=== PATIENT | male | born 1945 | race Caucasian/White ===

== ENCOUNTER → 2016-12-28 | Outpatient (CLI) | payer BC ==
[~2016-12-28] MED LIST: ACT30 PO; ASPI81TA28 PO; ATOR-22 PO; GLIP5TAB11 PO; OLME40TA30 PO; OMEG10007 PO
--- NOTE | 2016-12-28 12:19 | DIAGNOSTIC IMAGING REPORT ---
CT SCAN OF THE ABDOMEN AND PELVIS WITHOUT CONTRAST CLINICAL HISTORY: N20.0 Kidney csefaxM40.9 Flank pain COMPARISON STUDY: KUB dated 10/25/2015 TECHNIQUE: CT scan of the abdomen and pelvis was performed from the lung bases to the proximal femurs. Images are reviewed in the axial, sagittal, and coronal planes. IV contrast was not administered for this examination. A dose lowering technique was utilized adhering to the principles of ALARA. CT DOSE: 1247.11 mGy.cm FINDINGS: Lower chest: There are calcified mediastinal and hilar lymph nodes. There is subpleural interstitial thickening. Liver: The unenhanced liver is normal in size, contour, and attenuation. There is no intrahepatic biliary ductal dilatation. Gallbladder: Cholelithiasis Spleen: There is scattered splenic granulomas. Pancreas: Unremarkable. Adrenal glands: Unremarkable. Kidneys: There are excess of 10 calculi in each kidney. The largest is located within the lower pole of the right kidney measuring 4 mm. No ureteral calculi are visualized. Bowel: There are no transition zones indicate bowel obstruction. There is no acute diverticulitis. By history the appendix is surgically absent. Peritoneum: There is no intraperitoneal free air or abdominal ascites. There is a fat-containing left inguinal hernia. Vasculature: The abdominal aorta is normal in course and caliber. Adenopathy: None. Pelvic viscera: The prostate is mildly enlarged. Skeletal structures: No destructive osseous lesions are seen. IMPRESSION: 1. Bilateral nephrolithiasis 2. No ureteral calculi identified 3. No evidence of bowel obstruction. No evidence of free air 4. Fat-containing left inguinal hernia Electronically signed by: Adrien Akhtar M.D. 12/28/2016 12:18 PM Dictated Date/Time: 12/28/2016 12:12 PM
== END | disposition home or self-care (01) ==
LOC: C.CTS 11:46
PROVIDERS: ATTEND Urology
DX: N20.0 Calculus of kidney (principal); K40.90 Unilateral inguinal hernia, without obstruction or gangrene, not specified as recurrent

== ENCOUNTER 2023-12-13 17:19 | Inpatient (IN) ==
[2023-12-13 17:50] LABS: Base Excess VBG 0.6 mEq/L; HCO3 VBG 27 mmol/L; Oxygen Saturation VBG < 60.0 %; PCO2 VBG 52 mmHg (38-50); PO2 VBG < 20 mmHg; pH VBG 7.33 (7.36-7.41)
[2023-12-13 17:58] LABS: iSTAT Creatinine 1.9 mg/dl (0.6-1.3); iSTAT Hemoglobin 13.9 g/dl (14.0-18.0); iSTAT Ionized Calcium 1.19 mmol/l (1.12-1.32)
--- NOTE | 2023-12-13 18:11 | XRay Report ---
XR chest 1V portable CLINICAL HISTORY: Sepsis TECHNIQUE: Single frontal radiograph of the chest was obtained. Comparison: Comparison is made to chest radiograph 12/08/2023 FINDINGS: No lines and tubes are seen. Calcified aortic knob is seen. Airspace opacities in the right greater t hernandez left lower lung. Right lower lung pleural effusions are seen. IMPRESSION: Right lower lung pleural effusion. Right greater than left airspace opacities, new from prior. This m ay represent atelectasis, pneumonia, and/or aspiration. ACT 112: Negative or not required by law. Electronically signed by: Didier Zavala M.D. 12/13/2023 6:09 PM
[2023-12-13 18:14] LABS: Basophils # (auto) 0.03 K/uL (0.00-0.20); Basophils % (auto) 0.2 %; Eosinophils # (auto) 0.15 K/uL (0.00-0.50); Eosinophils % (auto) 1.1 %; Hematocrit (blood only) 39.5 % (42.0-52.0); Immature Granulocytes # (auto) 0.08 K/uL (0.01-0.20); Immature Granulocytes % (auto) 0.6 %; Lymphocytes # (auto) 1.07 K/uL (1.20-3.40); Lymphocytes % (auto) 7.5 %; Mean Corpuscular Hemoglobin 31.3 pg (25.0-34.0); Mean Corpuscular Hgb Conc 32.9 g/dL (32.0-36.0); Mean Platelet Volume 10.2 fL (9.4-12.4); Monocytes # (auto) 1.55 K/uL (0.11-0.59); Monocytes % (auto) 10.9 %; Neutrophils # (auto) 11.39 K/uL (1.40-6.50); Neutrophils % (auto) 79.7 %; Platelet Count 354 K/uL (130-400); RDW Coefficient of Variation 12.7 % (11.5-14.5); RDW Standard Deviation 44.2 fL (36.4-46.3); Red Blood Count 4.16 M/uL (4.70-6.10); White Blood Count 14.27 K/ul (4.8-10.8)
[2023-12-13 18:15] LABS: Albumin Level 3.5 gm/dl (3.4-5.0); BUN Creatinine Ratio 23.7 (10-20); Bilirubin Direct 0.2 mg/dl (0-0.2); Bilirubin,Total 0.4 mg/dl (0.2-1.0); Calcium 9.4 mg/dl (8.6-10.3); Magnesium 2.1 mg/dl (1.7-2.4); Total Protein 7.6 gm/dl (6.0-8.3)
[2023-12-13 18:21] LABS: Troponin I High Sensitivity 20.2 pg/ml (0-20)
[2023-12-13 18:41] LABS: Partial Thromboplastin Time 28 Seconds (21-31); Prothrombin Time 11.2 Seconds (9.0-12.0)
[2023-12-13 19:01] LABS: Adenovirus PCR Not Detected (NotDetected); Bordetella parapertussis PCR Not Detected (NotDetected); Bordetella pertussis PCR Not Detected (NotDetected); Chlamydia pneumoniae PCR Not Detected (NotDetected); Coronavirus 229E PCR Not Detected (NotDetected); Coronavirus CoV-2 (COVID19)PCR Not Detected (NotDetected); Coronavirus HKU1 PCR Not Detected (NotDetected); Coronavirus NL63 PCR Not Detected (NotDetected); Coronavirus OC43PCR Not Detected (NotDetected); Human Metapneumovirus PCR Not Detected (NotDetected); Influenza A PCR Not Detected (NotDetected); Influenza B PCR Not Detected (NotDetected); Mycoplasma pneumoniae PCR Not Detected (NotDetected); Parainfluenza Virus 1 PCR Not Detected (NotDetected); Parainfluenza Virus 2 PCR Not Detected (NotDetected); Parainfluenza Virus 3 PCR Not Detected (NotDetected); Parainfluenza Virus 4 PCR Not Detected (NotDetected); Respiratory Syncytial VirusPCR Not Detected (NotDetected); Rhinovirus/Enterovirus PCR Not Detected (NotDetected)
[2023-12-13] MEDS: PIPERACILLIN/TAZOBACTAM 4.5 GM/120 ML BAG IV ONE (19:09)
--- NOTE | 2023-12-13 19:35 | History & Physical Report ---
Date of Service December 13, 2023 Assessment & Plan (1) Pleural effusion associated with pulmonary infection: (2) Diabetes mellitus, type II, insulin dependent: (3) CKD (chronic kidney disease) stage 3, GFR 30-59 ml/min: (4) Hypertension: Plan 1. Pleural effusion with pulmonary infection Pt has had respiratory symptoms for the last week. He was seen by his primary care as well as the ED in [facility]. Pt was started on PO antibiotic, corticosteroid and opioids for right sided rib pain without improvement. Pt presented to this ED with SOB and requiring 4L oxymask to maintain O2 sat >90%. CXR revealed bilateral pleural effusion (right greater than left) and WBC at 14.27. Biofire was negative. Troponin were also slightly elevated at 20.2, but trended down to 10.6 after 3 hrs. In ED blood cultures drawn and pt was started on IV Zosyn 4.5mg. Pt also complains of right sided chest wall pain that has not improved with corticosteroids or opioids. Pt was given a one time IV dose of 15mg Toradol and lidoderm 5% patch. - Continue IV Zosyn 4.5mg Q8h - Continue supplemental O2 via oxymask or nasal cannula with goal O2 sat >90% - Pulmonary consult - Acetaminophen 650mg PO q6h PRN for pain or fever - Awaiting results of blood cultures 2. DM2 Hx of uncontrolled DM with complications including nephropathy and retinopathy. Pt's last known A1c on 10/25/23 was 7.3%. - Hold home DM meds - Accuchecks per protocol - Start Glargine 12 Units BID - Start Aspart on sliding scale BSG range 110 low to 140 high. Correction factor 25mg/dL/unit. Carb ratio 8g/unit 3. CKD stage 3 Pt presents c/o increased 1+ edema at bilateral feet and elevation in Cr at 1.77. Pt's base line Cr is 1.2. All other electrolytes are in normal range at this time. - Will encourage PO fluids - Continue to monitor CMP 4. HTN Blood pressures have been stable. Plan to continue home meds. - Continue irbesartan 300mg PO qd - Continue nifedipine 60mg PO qd Other chronic conditions: - HLD: Continue home med of atorvastatin PO 20mg - Depression: Continue Venlafaxine PO 37.5 mg qd Dispo: Med tele Diet: Carb control DM2 VTE prophylaxis: SCDs Code; DNR/DNI History of Present Illness Chief Complaint: Shortness of breath Primary Care Provider: Carly Quintanilla MD Pt is a 78 yo male with PMH of DM2, CKD stage 3, HTN, HLD, obesity and diabetic retinopathy who presented ED with shortness of breath and right sided chest pain for the last week. Pt was seen in ED in [place] and told he had pneumonia. He was given a Z-richard, prednisone taper and Percocet. Pt states he has been taking meds as directed, but breathing has become more difficult and unable to sleep. Pt states he has right sided chest pain that is worse with coughing, deep breathing and when leaning or laying on his right side. Pain is better when taking shallow breaths and sitting upright, leaning over a table. Pt denies fever or chills. He denies nausea, vomiting, diarrhea, dysuria, or hematuria. Pt endorses recent onset swelling in lower legs and feet. Pt does not use a diuretic. In ED patient was started on 4L oxymask and IV Zosyn. Was given Toradol 15mg IV and lidoderm 5% patch for pain. Allergies Allergy/AdvReac Type Severity Reaction Status Date / Time No Known Drug Allergies Allergy Verified 12/13/23 21:49 Home Medications Medication Instructions Recorded Confirmed Type flash glucose scanning reader #1 ea 08/26/21 12/01/23 Rx (FreeStyle Timothy 14 Day [place]) flash glucose sensor (FreeStyle #1 ea 08/26/21 12/01/23 Rx Timothy 14 Day Sensor kit) aspirin 81 mg tablet 81 mg PO DAILY 01/14/22 12/13/23 History insulin NPH isoph U-100 human 100 18 unit subcut BID 01/14/22 12/13/23 History unit/mL (3 mL) subcutaneous pen (Humulin N NPH U-100 Insulin KwikPen) omega-3 acid ethyl esters 1 gram 2 cap PO DAILY 01/14/22 12/13/23 History capsule zinc acetate 50 mg (zinc) capsule 50 mg PO DAILY 01/14/22 12/13/23 History empagliflozin 10 mg tablet 10 mg PO DAILY #30 tabs 02/12/23 12/13/23 Rx (Jardiance) doxazosin 4 mg tablet 4 mg PO DAILY #90 tabs 02/28/24 10/28/24 Rx atorvastatin 20 mg tablet 20 mg PO DAILY #90 tabs 04/28/23 12/13/23 Rx multivitamin 1 tab PO DAILY 05/12/23 12/13/23 History metformin 500 mg tablet 500 mg PO BID #60 tabs 07/23/23 12/13/23 Rx irbesartan 300 mg tablet 300 mg PO DAILY #90 tabs 08/18/23 12/13/23 Rx Embrace TALK test strips (blood #200 ea 10/05/23 12/01/23 Rx sugar diagnostic) venlafaxine 37.5 mg 37.5 mg PO DAILY #90 tabs 10/14/23 12/13/23 Rx tablet,extended release 24 hr nifedipine 60 mg tablet,extended 60 mg PO DAILY #90 tabs 11/01/23 12/13/23 Rx release benzonatate 200 mg capsule 200 mg PO TID PRN cough #30 caps 12/01/23 12/13/23 Rx loratadine 10 mg disintegrating 10 mg PO DAILY #30 tabs 12/01/23 12/13/23 Rx tablet prednisone 10 mg tablet See Rx Instructions PO DAILY #30 12/08/23 12/13/23 Rx tabs oxycodone-acetaminophen 5 mg-325 1 tab PO Q6H PRN Pain, Mild 12/13/23 12/13/23 History mg tablet Past Med/Surg History Problem List (Updated 12/13/23 @ 21:13 by Josiah Keith MD) Acute kidney injury superimposed on chronic kidney disease (Acute) Pleural effusion (Acute) Pneumonia (Acute) Hypoxia (Acute) Pleural effusion associated with pulmonary infection Diabetic nephropathy associated with type 2 diabetes mellitus Nonproliferative diabetic retinopathy Obesity Diabetes mellitus, type II, insulin dependent CKD (chronic kidney disease) stage 3, GFR 30-59 ml/min Hyperlipidemia Hypertension Type 2 diabetes, uncontrolled, with diabetic cataract BPH without obstruction/lower urinary tract symptoms (Acute) Impotence (Acute) Uric acid urolithiasis (Acute) Surgical History S/P cataract surgery S/P hip replacement History of knee replacement History of cystoscopy WITH URTEROSCOPY AND MANIPULATION OF CALCULUS Status post cystoscopy with ureteral stent placement History of appendectomy Family History Mother Diabetes Hypertension Ovarian cancer Father Diabetes Hypertension Kidney stones Myocardial infarction Sister Family history of uterine cancer Ovarian cancer Denies family history of Prostate cancer Breast cancer Colorectal cancer Social History Smoking Status: Never smoker Second Hand Exposure: No; Do You Dip or Chew Tobacco: No; Hx Alcohol Use: No Hx Substance Use: No Preferred Language: Kiswahili Communication Ability: Effective Visual Impairment: No Limitations Hearing Ability: Normal Rough Rounder Machine Required: No Beliefs That Will Affect Care: None marital status: Current Living Situation: Spouse current occupational status: employed and retired current occupation: [employer] How many Children do You have: 2 Other Information That Helps Us Care for You: No Feels Safe at Home: Yes Safety Concerns: Feels Safe At This Time Childhood Exposure to Second-Hand Smoke: No Diet: regular caffeine: No during the past year weight has: remained stable Dental Care, Regularly: Yes Physical Activity Frequency: Daily Seatbelt Use: always Sunscreen Use: No Assistive Devices: Denture - Upper Review of Systems Review of Systems: As per HPI Physical Exam Constitutional: WD/WN, vitals as above Neck: trachea midline, no thyromegaly Respiratory: normal respiratory effort, + cough and + tripod positioning Auscultation: + diminished lung sounds (Bilateral lung bases) and + crackles (right middle lobe) Cardiovascular: RRR, no murmur, no edema Extremities: + pedal edema Gastrointestinal (Abdomen): normal bowel sounds, soft, nontender, no hepatosplenomegaly Musculoskeletal: Head/Neck/Chest: + abnormal palpation of chest wall (Tender at right lower, lateral and posterior ribs); normal inspection of chest wall Skin: no rashes, warm and dry Neurologic: PERRL, EOMI, accommodation nl, no face palsy, no dysarthria Psychiatric: A+Ox3, euthymic affect Results & Data Results & Data Vital Signs (Past 12 Hours) Vital Signs Temp Pulse Pulse Resp BP BP Pulse Ox 12/13/23 19:23 94 H 23 127/52 L 91 12/13/23 19:22 94 H 23 127/52 L 91 12/13/23 17:55 96 H 27 H 122/52 L 92 12/13/23 17:47 91 12/13/23 17:47 96 H 27 H 122/52 L 91 12/13/23 17:47 12/13/23 17:34 99 H 12/13/23 17:24 36.9 C 94 H 18 118/66 84 L O2 Del Method O2 Flow Rate 12/13/23 19:23 Oxymask 4 12/13/23 19:22 Oxymask 4 12/13/23 17:55 Oxymask 4 12/13/23 17:47 Oxymask 4 12/13/23 17:47 Oxymask 4 12/13/23 17:47 Oxymask 12/13/23 17:34 12/13/23 17:24 Room Air Laboratory Results Abnormal lab results 12/13/23 12/13/23 12/13/23 Range/Units 17:39 17:46 20:24 WBC 14.27 H (4.8-10.8) K/ul RBC 4.16 L (4.70-6.10) M/uL Hgb 13.0 L (14.0-18.0) g/dl POC Hgb 13.9 L (14.0-18.0) g/dl Hct 39.5 L (42.0-52.0) % POC Hct 41 L (42-52) % Neut # (Auto) 11.39 H (1.40-6.50) K/uL Lymph # (Auto) 1.07 L (1.20-3.40) K/uL [place]ton # (Auto) 1.55 H (0.11-0.59) K/uL VBG pH 7.33 L (7.36-7.41) VBG pCO2 52 H (38-50) mmHg POC BUN 41 H (7-18) mg/dl BUN 42 H (6-23) mg/dl Creatinine 1.77 H (0.6-1.4) mg/dl POC Creatinine 1.9 H (0.6-1.3) mg/dl BUN/Creatinine Ratio 23.7 H (10-20) Glucose 191 H (70-99(Fasting)) mg/dl POC Glucose 191 H (70-99) mg/dl POC Glucose (other) 195 H (70-99) mg/dl AST 12 L (13-39) U/L Troponin I High Sens 20.2 H (0-20) pg/ml Medications Administered Chest X-Ray 12/13/23 17:36 XR chest 1V portable CLINICAL HISTORY: Sepsis TECHNIQUE: Single frontal radiograph of the chest was obtained. Comparison: Comparison is made to chest radiograph 12/08/2023 FINDINGS: No lines and tubes are seen. Calcified aortic knob is seen. Airspace opacities in the right greater than left lower lung. Right lower lung pleural effusions are seen. IMPRESSION: Right lower lung pleural effusion. Right greater than left airspace opacities, new from prior. This may represent atelectasis, pneumonia, and/or aspiration. ACT 112: Negative or not required by law. Electronically signed by: Didier Zavala M.D. 12/13/2023 6:09 PM Code Status & VTE Plan Code Status DNR/DNI Supervising Physician Co-Signing Physician Notes Patient seen and examined, chart reviewed, case discussed with Dr. Lane and I agree with the assessment and plan as above. In brief, patient is an 78yo male with history of DM, CKD, HTN, HLP presenting with one week of right sided chest discomfort. He was seen at an outside ER and diagnosed with PNA - given Prednisone, Percocet and Azithromycin. He reports no relief with these medications. Pain is pleuritic and positional. No report of fever or chills. No additional complaints. In the ER patient afebrile, HD stable. Saturating in the 90's on 4L NC Patient seen in room 456-2 - resting comfortably, arousable +S1/S2, regular, no m/r/g Lungs with diminished breath sounds in the right, crackles present in right apex, no rhonchi or wheezes Abd - +BS, soft, NT/ND Ext - warm, 1+ pitting edema of bilateral LE Labs and images reviewed - significant for WBC=14.27, elevated neutrophil:lymphocyte Cr=1.77, increased from baseline of appx 1.2-1.3 Procalcitonin=PENDING Respiratory biofire panel - NEGATIVE CXR wtih RLL pleural effusion Assessment/Plan 78yo male with history of DM, HTN, HLP and CKD presenting with acute hypoxic respiratory failure requiring supplemental O2. Found with moderate right sided pleural effusion. Possible infection - patient with elevated WBC count but has been on steroids. No history of CHF Agree with plan as above. In addition will order BNP and CT of the Chest Pulmonary consultation for possible thoracentesis in AM. Should patient clinically decompensate will perform bedside thoracentesis. Patient is not on any blood thinners but is taking ASA Resident Activity Tracking Resident Involvement: Resident Care Provided Care Provided: Adult Hospital Medicine (3) CKD (chronic kidney disease) stage 3, GFR 30-59 ml/min Chronic kidney disease stage 3 subtype: stage 3a (GFR 45-59) Qualified Code(s): N18.31 - Chronic kidney disease, stage 3a (4) Hypertension Hypertension type: primary hypertension Qualified Code(s): I10 - Essential (primary) hypertension
[2023-12-13] MEDS ORDERED: GLUCOSE 40% GEL 15 GM TUBE PO PRN (19:46)
[2023-12-13] MEDS ORDERED: GLUCAGON FOR INJ 1 MG VIAL SQ PRN (19:46)
[2023-12-13] MEDS ORDERED: CARBOHYDRATES FOR HYPOGLYCEMIA PO PRN (19:46)
[2023-12-13] MEDS ORDERED: GLUCOSE 10 TAB/TUBE PO PRN (19:46)
[2023-12-13] MEDS ORDERED: DEXTROSE 50% 50 ML SYRINGE IV PRN (19:46)
[2023-12-13] MEDS: LIDOCAINE 5% 1 PATCH TD STA (20:17)
[2023-12-13] MEDS: KETOROLAC TROMETHAMINE 15 MG/ML VIAL IV ONE (20:17)
--- NOTE | 2023-12-13 21:13 | Emergency Department Note ---
History of Present Illness General Chief Complaint: Shortness of Breath/Dyspnea Stated Complaint: SOB, PNEUMONIA, CHEST PAIN, Time Seen by Provider: 12/13/23 17:30 History of Present Illness Provider Complaint: shortness of breath and cough Onset (ago): week(s) (1) Severity: moderate Consistency/Duration: + progressively worsening Maximum Pain Intensity: 7 Relieved By: + nothing Exacerbated By: + coughing Known history of: other (Recent diagnosis of pneumonia. Was started on Augmentin yesterday.) Associated symptoms: + sputum production and + chest congestion; no hemoptysis Related Data Home oxygen amount: none Home Medications Medication Instructions Recorded Confirmed Type flash glucose scanning reader #1 ea 08/26/21 12/01/23 Rx (FreeStyle Timothy 14 Day Alstead) flash glucose sensor (FreeStyle #1 ea 08/26/21 12/01/23 Rx Timothy 14 Day Sensor kit) aspirin 81 mg tablet 81 mg PO DAILY 01/14/22 12/08/23 History insulin NPH isoph U-100 human 100 18 unit subcut BID 01/14/22 12/08/23 History unit/mL (3 mL) subcutaneous pen (Humulin N NPH U-100 Insulin KwikPen) omega-3 acid ethyl esters 1 gram 2 cap PO DAILY 01/14/22 12/08/23 History capsule zinc acetate 50 mg (zinc) capsule 50 mg PO DAILY 01/14/22 12/08/23 History empagliflozin 10 mg tablet 10 mg PO DAILY #30 tabs 02/12/23 12/08/23 Rx (Jardiance) doxazosin 4 mg tablet 4 mg PO DAILY #90 tabs 04/14/23 12/08/23 Rx atorvastatin 20 mg tablet 20 mg PO DAILY #90 tabs 04/28/23 12/08/23 Rx multivitamin 1 tab PO DAILY 05/12/23 12/08/23 History metformin 500 mg tablet 500 mg PO BID #60 tabs 07/23/23 12/08/23 Rx irbesartan 300 mg tablet 300 mg PO DAILY #90 tabs 08/18/23 12/08/23 Rx Embrace TALK test strips (blood #200 ea 10/05/23 12/01/23 Rx sugar diagnostic) venlafaxine 37.5 mg 37.5 mg PO DAILY #90 tabs 08/29/24 10/23/24 Rx tablet,extended release 24 hr nifedipine 60 mg tablet,extended 60 mg PO DAILY #90 tabs 11/01/23 12/08/23 Rx release benzonatate 200 mg capsule 200 mg PO TID PRN cough #30 caps 12/01/23 12/08/23 Rx loratadine 10 mg disintegrating 10 mg PO DAILY #30 tabs 12/01/23 12/08/23 Rx tablet prednisone 10 mg tablet See Rx Instructions PO DAILY #30 12/08/23 12/08/23 Rx tabs Allergies Allergy/AdvReac Type Severity Reaction Status Date / Time No Known Drug Allergies Allergy Verified 12/08/23 11:12 Past Med/Surg History Problem List (Updated 12/13/23 @ 21:13 by Josiah Keith MD) Acute kidney injury superimposed on chronic kidney disease (Acute) Pleural effusion (Acute) Pneumonia (Acute) Hypoxia (Acute) Pleural effusion associated with pulmonary infection Diabetic nephropathy associated with type 2 diabetes mellitus Nonproliferative diabetic retinopathy Obesity Diabetes mellitus, type II, insulin dependent CKD (chronic kidney disease) stage 3, GFR 30-59 ml/min Hyperlipidemia Hypertension Type 2 diabetes, uncontrolled, with diabetic cataract BPH without obstruction/lower urinary tract symptoms (Acute) Impotence (Acute) Uric acid urolithiasis (Acute) Surgical History S/P cataract surgery S/P hip replacement History of knee replacement History of cystoscopy WITH URTEROSCOPY AND MANIPULATION OF CALCULUS Status post cystoscopy with ureteral stent placement History of appendectomy Family History Mother Diabetes Hypertension Ovarian cancer Father Diabetes Hypertension Kidney stones Myocardial infarction Sister Family history of uterine cancer Ovarian cancer Denies family history of Prostate cancer Breast cancer Colorectal cancer Social History Smoking Status: Never smoker Second Hand Exposure: No; Do You Dip or Chew Tobacco: No; Hx Alcohol Use: No Hx Substance Use: No Preferred Language: Estonian Communication Ability: Effective Visual Impairment: No Limitations Hearing Ability: Normal Proofer Prepress Required: No marital status: Current Living Situation: Spouse current occupational status: employed and retired current occupation: [employer] How many Children do You have: 2 Feels Safe at Home: Yes Childhood Exposure to Second-Hand Smoke: No Diet: regular caffeine: No during the past year weight has: remained stable Dental Care, Regularly: Yes Physical Activity Frequency: Daily Seatbelt Use: always Sunscreen Use: No Assistive Devices: Denture - Upper and Glasses Physical Exam 2 Vital Signs: Vital Signs - 24 hr 12/13/23 17:24 12/13/23 17:34 12/13/23 17:47 Temperature 36.9 C Temperature Source Temporal Artery Sc an Pulse Rate 94 H 99 H Pulse Rate [Right Brachial] Pulse Rhythm [Righ t Brachial] Pulse Strength [Ri ght Brachial] Respiratory Rate 18 Respiratory Effort / Characteristics Non-Labored Sponta neous Respiratory Depth Normal Blood Pressure 118/66 Blood Pressure [Ri ght Arm] Blood Pressure Maryam n 83 Blood Pressure Maryam n [Right Arm] Blood Pressure Pos ition Sitting Blood Pressure Pos ition [Right Arm] Pulse Oximetry 84 L Oxygen Delivery Me thod Room Air Oxymask Oxygen Flow Rate Sepsis Recent Feve r Within 48 Hours No Sepsis New/Unexpla ined Change in Men kenya Status N/A Sepsis Action Take n by Nursing No Action Required 12/13/23 17:47 12/13/23 17:47 12/13/23 17:55 Temperature Temperature Source Pulse Rate Pulse Rate [Right Brachial] 96 H 96 H Pulse Rhythm [Righ t Brachial] Regular Regular Pulse Strength [Ri ght Brachial] Normal Normal Respiratory Rate 27 H 27 H Respiratory Effort / Characteristics Labored Respiratory Depth Deep Blood Pressure Blood Pressure [Ri ght Arm] 122/52 L 122/52 L Blood Pressure Maryam n Blood Pressure Maryam n [Right Arm] 75 75 Blood Pressure Pos ition Blood Pressure Pos ition [Right Arm] Sitting Sitting Pulse Oximetry 91 91 92 Oxygen Delivery Me thod Oxymask Oxymask Oxymask Oxygen Flow Rate 4 4 4 Sepsis Recent Feve r Within 48 Hours Sepsis New/Unexpla ined Change in Men kenya Status Sepsis Action Take n by Nursing 12/13/23 19:22 12/13/23 19:23 12/13/23 20:53 Temperature Temperature Source Pulse Rate Pulse Rate [Right Brachial] 94 H 94 H 91 H Pulse Rhythm [Righ t Brachial] Regular Regular Regular Pulse Strength [Ri ght Brachial] Normal Normal Normal Respiratory Rate 23 23 22 Respiratory Effort / Characteristics Non-Labored Respiratory Depth Normal Normal Blood Pressure Blood Pressure [Ri ght Arm] 127/52 L 127/52 L 102/53 L Blood Pressure Maryam n Blood Pressure Maryam n [Right Arm] 77 77 69 Blood Pressure Pos ition Blood Pressure Pos ition [Right Arm] Sitting Sitting Pulse Oximetry 91 91 94 Oxygen Delivery Me thod Oxymask Oxymask Oxymask Oxygen Flow Rate 4 4 4 Sepsis Recent Feve r Within 48 Hours Sepsis New/Unexpla ined Change in Men ken[place] Status Sepsis Action Take n by Nursing Physical Exam: Physical Exam GENERAL: oriented to person, place, and time. appears well-developed and well- nourished. HENT: Exam performed. - Head: Normocephalic and atraumatic. EYES: Conjunctivae and EOM are normal. Right eye exhibits no discharge. Left eye exhibits no discharge. No scleral icterus. NECK: Normal range of motion. Neck supple. No JVD present. CV: Normal rate, regular rhythm, normal heart sounds and intact distal pulses. There is no peripheral edema. Palpable radial pulses bue. PULM/CHEST: Rhonchi bilaterally with diminished breath sounds on the right. ABD: The abdomen is soft. There is no tenderness. NEURO: Motor and sensation grossly intact. SKIN: Skin is warm and dry. He is not diaphoretic. PSYCH: normal mood and affect. Behavior is normal. Judgment and thought content normal. Course Course 1729: The patient was evaluated in room C4. A complete history and physical exam was performed Cardiac monitoring: An order was placed for continuous cardiac monitoring. The monitor shows a rate of 90 with sinus rhythm interpreted by me Patient was found to be hypoxic in the low 80s and high 70s on room air. Supplemental oxygen was applied which improved the patient's oxygen saturation. 1900: Vital signs stable on supplemental oxygen. Chest x-ray does show right- sided pleural effusion leukocytosis of 14. Patient be treated with Zosyn. Patient has an AMANDA. Patient will be admitted to the [facility] Hospitalist team. Dr. Robertson aware of patient. Administered Medications Discontinued Medications Piperacillin Sod/Tazobactam Sod (Zosyn) 4.5 gm in 120 mls @ 240 mls/hr IV NOW ONE Stop: 12/13/23 19:14 Last Infusion: 12/13/23 20:11 Dose: Infused Documented By: Admin: 12/13/23 19:09 Dose: 240 mls/hr Documented By: SCOTTY Ketorolac Tromethamine (Ketorolac Tromethamine 15 Mg/Ml Vial) 15 mg IV NOW ONE Stop: 12/13/23 19:37 Last Admin: 12/13/23 20:17 Dose: 15 mg Documented By: SCOTTY Lidocaine (Lidocaine 5% 1 Patch) 1 patch TD NOW STA Stop: 12/13/23 19:38 Last Admin: 12/13/23 20:17 Dose: 1 patch Documented By: SCOTTY Medical Decision Making Laboratory Data Attestation: I reviewed the patient's lab results. 12/13/23 17:39 12/13/23 17:39 Lab Results 12/13/23 12/13/23 12/13/23 Range/Units 17:39 17:46 17:50 WBC 14.27 H (4.8-10.8) K/ul RBC 4.16 L (4.70-6.10) M/uL Hgb 13.0 L (14.0-18.0) g/dl POC Hgb 13.9 L (14.0-18.0) g/dl Hct 39.5 L (42.0-52.0) % POC Hct 41 L (42-52) % MCV 95.0 (80.0-100.0) fL MCH 31.3 (25.0-34.0) pg MCHC 32.9 (32.0-36.0) g/dL RDW Std Deviation 44.2 (36.4-46.3) fL RDW Coeff of Tyler 12.7 (11.5-14.5) % Plt Count 354 (130-400) K/uL MPV 10.2 (9.4-12.4) fL Immature Gran % (Auto) 0.6 % Neut % (Auto) 79.7 % Lymph % (Auto) 7.5 % Boyd % (Auto) 10.9 % Eos % (Auto) 1.1 % Baso % (Auto) 0.2 % Neut # (Auto) 11.39 H (1.40-6.50) K/uL Lymph # (Auto) 1.07 L (1.20-3.40) K/uL Boyd # (Auto) 1.55 H (0.11-0.59) K/uL Eos # (Auto) 0.15 (0.00-0.50) K/uL Baso # (Auto) 0.03 (0.00-0.20) K/uL Immature Gran # (Auto) 0.08 (0.01-0.20) K/uL PT 11.2 (9.0-12.0) Seconds INR 1.0 (0.9-1.1) APTT 28 (21-31) Seconds PTT Ratio 1.0 VBG pH 7.33 L (7.36-7.41) VBG pCO2 52 H (38-50) mmHg VBG pO2 < 20 mmHg VBG HCO3 27 mmol/L VBG O2 Saturation < 60.0 % VBG Base Excess 0.6 mEq/L POC Sodium 137 (135-144) mmol/L Sodium 136 (136-145) mmol/L POC Potassium 4.0 (3.3-5.0) mmol/L Potassium 4.0 (3.5-5.1) mmol/L POC Chloride 101 (101-112) mmol/L Chloride 100 (98-107) mmol/L Carbon Dioxide 27 (21-32) mmol/L POC Total CO2 25 (24-31) mmol/L Anion Gap 9 (3-11) POC Anion Gap 17.0 (16-25) mmol/L POC BUN 41 H (7-18) mg/dl BUN 42 H (6-23) mg/dl Creatinine 1.77 H (0.6-1.4) mg/dl POC Creatinine 1.9 H (0.6-1.3) mg/dl Est Cr Clr Drug Dosing 44.0 ml/min eGFR 38.35 BUN/Creatinine Ratio 23.7 H (10-20) Glucose 191 H (70-99(Fasting)) mg/dl POC Glucose (70-99) mg/dl POC Glucose (other) 195 H (70-99) mg/dl Lactate 1.2 (0.4-2.0) mmol/L Calcium 9.4 (8.6-10.3) mg/dl POC Ioniz Calcium Deven 1.19 (1.12-1.32) mmol/l Magnesium 2.1 (1.7-2.4) mg/dl Total Bilirubin 0.4 (0.2-1.0) mg/dl Direct Bilirubin 0.2 (0-0.2) mg/dl AST 12 L (13-39) U/L ALT 15 (7-52) U/L Alkaline Phosphatase 78 (34-104) U/L Troponin I High Sens 20.2 H (0-20) pg/ml Total Protein 7.6 (6.0-8.3) gm/dl Albumin 3.5 (3.4-5.0) gm/dl Procalcitonin Cancelled Adenovirus (PCR) Not Detected (NotDetected) B. pertussis DNA (PCR) Not Detected (NotDetected) B.parapertussis DNA PCR Not Detected (NotDetected) C. pneumoniae DNA (PCR) Not Detected (NotDetected) Coronavirus OC43 (PCR) Not Detected (NotDetected) Coronavirus HKU1 (PCR) Not Detected (NotDetected) Coronavirus 229E (PCR) Not Detected (NotDetected) SARS-CoV-2 (PCR) Not Detected (NotDetected) Coronavirus NL63 (PCR) Not Detected (NotDetected) Human Metapneumovir PCR Not Detected (NotDetected) Influenza Type A (PCR) Not Detected (NotDetected) Influenza Type B (PCR) Not Detected (NotDetected) M. pneumoniae (PCR) Not Detected (NotDetected) Parainfluenza 1 (PCR) Not Detected (NotDetected) Parainfluenza 2 (PCR) Not Detected (NotDetected) Parainfluenza 3 (PCR) Not Detected (NotDetected) Parainfluenza 4 (PCR) Not Detected (NotDetected) RSV (PCR) Not Detected (NotDetected) Entero/Rhino (PCR) Not Detected (NotDetected) 12/13/23 12/13/23 Range/Units 20:10 20:24 WBC (4.8-10.8) K/ul RBC (4.70-6.10) M/uL Hgb (14.0-18.0) g/dl POC Hgb (14.0-18.0) g/dl Hct (42.0-52.0) % POC Hct (42-52) % MCV (80.0-100.0) fL MCH (25.0-34.0) pg MCHC (32.0-36.0) g/dL RDW Std Deviation (36.4-46.3) fL RDW Coeff of Tyler (11.5-14.5) % Plt Count (130-400) K/uL MPV (9.4-12.4) fL Immature Gran % (Auto) % Neut % (Auto) % Lymph % (Auto) % Boyd % (Auto) % Eos % (Auto) % Baso % (Auto) % Neut # (Auto) (1.40-6.50) K/uL Lymph # (Auto) (1.20-3.40) K/uL Boyd # (Auto) (0.11-0.59) K/uL Eos # (Auto) (0.00-0.50) K/uL Baso # (Auto) (0.00-0.20) K/uL Immature Gran # (Auto) (0.01-0.20) K/uL PT (9.0-12.0) Seconds INR (0.9-1.1) APTT (21-31) Seconds PTT Ratio VBG pH (7.36-7.41) VBG pCO2 (38-50) mmHg VBG pO2 mmHg VBG HCO3 mmol/L VBG O2 Saturation % VBG Base Excess mEq/L POC Sodium (135-144) mmol/L Sodium (136-145) mmol/L POC Potassium (3.3-5.0) mmol/L Potassium (3.5-5.1) mmol/L POC Chloride (101-112) mmol/L Chloride (98-107) mmol/L Carbon Dioxide (21-32) mmol/L POC Total CO2 (24-31) mmol/L Anion Gap (3-11) POC Anion Gap (16-25) mmol/L POC BUN (7-18) mg/dl BUN (6-23) mg/dl Creatinine (0.6-1.4) mg/dl POC Creatinine (0.6-1.3) mg/dl Est Cr Clr Drug Dosing ml/min eGFR BUN/Creatinine Ratio (10-20) Glucose (70-99(Fasting)) mg/dl POC Glucose 191 H (70-99) mg/dl POC Glucose (other) (70-99) mg/dl Lactate (0.4-2.0) mmol/L Calcium (8.6-10.3) mg/dl POC Ioniz Calcium Deven (1.12-1.32) mmol/l Magnesium (1.7-2.4) mg/dl Total Bilirubin (0.2-1.0) mg/dl Direct Bilirubin (0-0.2) mg/dl AST (13-39) U/L ALT (7-52) U/L Alkaline Phosphatase (34-104) U/L Troponin I High Sens 10.6 D (0-20) pg/ml Total Protein (6.0-8.3) gm/dl Albumin (3.4-5.0) gm/dl Procalcitonin Adenovirus (PCR) (NotDetected) B. pertussis DNA (PCR) (NotDetected) B.parapertussis DNA PCR (NotDetected) C. pneumoniae DNA (PCR) (NotDetected) Coronavirus OC43 (PCR) (NotDetected) Coronavirus HKU1 (PCR) (NotDetected) Coronavirus 229E (PCR) (NotDetected) SARS-CoV-2 (PCR) (NotDetected) Coronavirus NL63 (PCR) (NotDetected) Human Metapneumovir PCR (NotDetected) Influenza Type A (PCR) (NotDetected) Influenza Type B (PCR) (NotDetected) M. pneumoniae (PCR) (NotDetected) Parainfluenza 1 (PCR) (NotDetected) Parainfluenza 2 (PCR) (NotDetected) Parainfluenza 3 (PCR) (NotDetected) Parainfluenza 4 (PCR) (NotDetected) RSV (PCR) (NotDetected) Entero/Rhino (PCR) (NotDetected) Imaging Data Attestation: I personally reviewed and interpreted this imaging study as follows: My Impression: Chest x-ray: Right-sided pleural effusion. Radiologist's Impression: Chest X-Ray 12/13/23 17:36 XR chest 1V portable CLINICAL HISTORY: Sepsis TECHNIQUE: Single frontal radiograph of the chest was obtained. Comparison: Comparison is made to chest radiograph 12/08/2023 FINDINGS: No lines and tubes are seen. Calcified aortic knob is seen. Airspace opacities in the right greater than left lower lung. Right lower lung pleural effusions are seen. IMPRESSION: Right lower lung pleural effusion. Right greater than left airspace opacities, new from prior. This may represent atelectasis, pneumonia, and/or aspiration. ACT 112: Negative or not required by law. Electronically signed by: Didier Zavala M.D. 12/13/2023 6:09 PM ECG Data Attestation: I personally reviewed and interpreted this ECG as follows: Interpretation: Sinus rhythm with a rate of 97. MO QRS and QTc intervals are within normal limits. No ST elevation or ST depression. [facility] Narrative 1730: The patient was evaluated in room C4. A complete history and physical exam was performed Cardiac monitoring: An order was placed for continuous cardiac monitoring. The monitor shows a rate of 90 with sinus rhythm interpreted by me Patient was found to be hypoxic in the low 80s and high 70s on room air. Supplemental oxygen was applied which improved the patient's oxygen saturation. 1900: Vital signs stable on supplemental oxygen. Chest x-ray does show right- sided pleural effusion leukocytosis of 14. Patient be treated with Zosyn. Patient has an AMANDA. Patient will be admitted to the [facility] Hospitalist team. Dr. Robertson aware of patient. Impression & Plan Hypoxia, Pneumonia, Pleural effusion, Acute kidney injury superimposed on chronic kidney disease Critical Care Time Critical Care Time: Yes Total Critical Care Time: 39 I have personally spent greater than 39 minutes of critical care time in the direct management of this patient. This includes bedside care, interpretation of diagnostic studies, and testing, discussion with consultants, patient, and family members, and other required patient management activities. This 39 minutes is in excess of all separately billable procedures. Discharge Plan Visit Data Chief Complaint: Shortness of Breath/Dyspnea Stated Complaint: SOB, PNEUMONIA, CHEST PAIN, ED Provider: Josiah Keith Discharge Problem: Hypoxia, Pneumonia, Pleural effusion, Acute kidney injury superimposed on chronic kidney disease Patient Disposition: Admitted As Inpatient Forms Stand Alone Forms: My [facility] Prescriptions Prescriptions: No Action (DME) FreeStyle Timothy 14 Day Alstead Misc See Rx Instructions .Route Qty: 1 0RF Rx Instructions: As directed (DME) FreeStyle Timothy 14 Day Sensor Kit See Rx Instructions .Route Qty: 1 0RF Rx Instructions: As directed Jardiance 10 mg tablet 10 mg PO DAILY Qty: 30 8RF Rx Instructions: Take one tablet once a day by mouth. doxazosin 4 mg tablet 4 mg PO DAILY Qty: 90 3RF atorvastatin 20 mg tablet 20 mg PO DAILY Qty: 90 3RF metformin 500 mg tablet 500 mg PO BID Qty: 60 5RF Rx Instructions: Take 500 mg by mouth twice daily. irbesartan 300 mg tablet 300 mg PO DAILY Qty: 90 1RF (DME) Embrace TALK test strips Strip See Rx Instructions .Route Qty: 200 3RF Rx Instructions: test 2 times daily venlafaxine 37.5 mg tablet extended release 24hr 37.5 mg PO DAILY Qty: 90 1RF nifedipine 60 mg tablet extended release 60 mg PO DAILY Qty: 90 0RF aspirin 81 mg tablet 81 mg PO DAILY omega-3 acid ethyl esters 1 gram capsule 2 cap PO DAILY zinc acetate 50 mg (zinc) capsule 50 mg PO DAILY Humulin N NPH Insulin KwikPen 100 unit/mL (3 mL) insulin pen 18 unit subcut BID multivitamin Tablet 1 tab PO DAILY prednisone 10 mg tablet See Rx Instructions PO DAILY Qty: 30 0RF Rx Instructions: 4 tabs for 3 days, then 3 tabs for 3 days, then 2 tabs for 3 days, then 1 tab for 3 days. PO DAILY; loratadine 10 mg tablet,disintegrating 10 mg PO DAILY Qty: 30 0RF benzonatate 200 mg capsule 200 mg PO TID PRN (Reason: cough) Qty: 30 0RF Referrals Referrals: Carly Quintanilla MD [Primary Care Provider] - Discharge Problem: Pneumonia Qualifiers: Pneumonia type: due to unspecified organism Laterality: right Lung location: u nspecified part of lung Qualified Code(s): J18.9 - Pneumonia, unspecified organism
[2023-12-13] MEDS: LANTUS PER UNIT CHARGE SQ SCH (22:28)
[2023-12-13] MEDS: INSULIN ASPART PER UNIT CHARGE SC SCH (22:28)
[2023-12-13] MEDS: ACETAMINOPHEN 325 MG TAB PO PRN (22:35)
[2023-12-14] MEDS: PIPERACILLIN/TAZOBACTAM 4.5 GM/100 ML BAG IV SCH (01:51)
[2023-12-14] MEDS: BENZONATATE 100 MG CAPSULE PO PRN (02:37)
--- NOTE | 2023-12-14 02:56 | Billing Data ---
Date of Service December 13, 2023 Coding Level of Care Code 20996 INT INP/OBS CARE
--- NOTE | 2023-12-14 07:51 | CT Scan Report ---
CT chest diagnostic wo con CLINICAL HISTORY: assess right sided effusion TECHNIQUE: Multidetector row helical CT of the chest was performed. Coronal and sagittal reformations were obtained. Automated dose lowering techniques and/or adjustment according to patient size were u tilized for this exam. CT DOSE: 829.58 mGy.cm Comparison: Comparison is made to chest radiograph 12/13/2023 FINDINGS: Lungs and pleura: Moderate right pleural effusion is seen with underlying atelectasis. The effusion m ay be mildly loculated. There is left-sided atelectasis without evidence of pleural effusion. Heart and pericardium: Physiologic pericardial fluid is noted. Vessels: Unremarkable. Mediastinum and lino: Subcentimeter lymph nodes are seen. Chest wall and lower neck: Gynecomastia is noted bilaterally. Abdomen: Unremarkable. Bones: Degenerative changes in the thoracic spine. IMPRESSION: Moderate right pleural effusion, likely mildly loculated, is seen with underlying atelectasis. ACT 112: Negative or not required by law. Electronically signed by: Didier Zavala M.D. 12/14/2023 7:49 AM
[2023-12-14 08:24] LABS: Basophils # (auto) 0.02 K/uL (0.00-0.20); Basophils % (auto) 0.2 %; Eosinophils # (auto) 0.23 K/uL (0.00-0.50); Eosinophils % (auto) 1.8 %; Hematocrit (blood only) 35.7 % (42.0-52.0); Hemoglobin 11.8 g/dl (14.0-18.0); Immature Granulocytes # (auto) 0.09 K/uL (0.01-0.20); Immature Granulocytes % (auto) 0.7 %; Lymphocytes # (auto) 0.77 K/uL (1.20-3.40); Mean Corpuscular Hemoglobin 31.2 pg (25.0-34.0); Mean Corpuscular Hgb Conc 33.1 g/dL (32.0-36.0); Mean Corpuscular Volume 94.4 fL (80.0-100.0); Mean Platelet Volume 10.3 fL (9.4-12.4); Monocytes # (auto) 1.39 K/uL (0.11-0.59); Monocytes % (auto) 10.7 %; Neutrophils # (auto) 10.44 K/uL (1.40-6.50); Neutrophils % (auto) 80.6 %; Platelet Count 371 K/uL (130-400); RDW Coefficient of Variation 12.9 % (11.5-14.5); RDW Standard Deviation 44.8 fL (36.4-46.3); Red Blood Count 3.78 M/uL (4.70-6.10); White Blood Count 12.94 K/ul (4.8-10.8)
[2023-12-14 08:58] LABS: Albumin Globulin Ratio 0.8 (0.9-2); Albumin Level 3.2 gm/dl (3.4-5.0); BUN Creatinine Ratio 22.5 (10-20); Bilirubin,Total 0.5 mg/dl (0.2-1.0); Calcium 9.4 mg/dl (8.6-10.3); Globulin 3.9 gm/dl (2.5-4.0); Potassium 4.1 mmol/L (3.5-5.1); Total Protein 7.1 gm/dl (6.0-8.3)
[2023-12-14] MEDS: KETOROLAC 30 MG/ML VIAL ONE (09:11)
--- NOTE | 2023-12-14 09:16 | Pulmonary Consultation ---
Date of Consultation December 14, 2023 Assessment & Plan (1) Pleural effusion associated with pulmonary infection: (2) Hypoxemia: (3) CKD (chronic kidney disease) stage 3, GFR 30-59 ml/min: Chronic kidney disease stage 3 subtype: stage 3a (GFR 45-59) Qualified Code(s): N18.31 - Chronic kidney disease, stage 3a Plan Impression: 78-year-old male with probable parapneumonic loculated complicated effusion. Recommendations: 1. Will proceed with limited thoracic ultrasound to see if we can identify a window for placement of a pigtail catheter. If were successful, initiate mist 2 protocol and further characterization of the pleural fluid will be obtained. If the patient fails or were unsuccessful at percutaneous drainage, referral to thoracic surgery for video-assisted thoracoscopic washout would be appropriate. 2. Patient is currently on Zosyn day #2. This should be appropriate antimicrobial therapy but may be able to de-escalate in the next 24 hours depending on clinical response. Will need to follow kidney function closely. 3. Patient is having significant pain likely secondary to pleural inflammation. Continue Toradol with attention to his serum creatinine and will place on morphine as needed to try and get the patient some analgesic relief. 4. Management the patient's other medical issues per primary admitting service. The above recommendations and plan were extensively discussed with the patient as well as with his daughter and son-in-law at bedside. Questions were answered to the best of my ability. They expressed understanding and are in agreement with plan as outlined History of Present Illness Attending Physician: Nicholas Handy MD History of Present Illness Asked by hospitalist to assist in evaluation management this patient with loculated parapneumonic effusion. History is obtained from discussion with patient as well as review of electronic medical record. Patient is an 78-year-old male without prior pulmonary history who presented to the emergency room with a 4-day history of right sided chest discomfort. The pain was so bad the patient had to sleep upright. He was seen in the emergency room in [place] and apparently diagnosed with pneumonia. We do not have those films available to review but he was treated with azithromycin and prednisone. He denies fevers chills or night sweats. He has noted some lower extremity edema. He was treated with Zosyn in the emergency room and had a CT scan demo nstrating a loculated pleural effusion. He is admitted to the medicine service for additional evaluation. We are consulted for management of the complex pleural space. Patient does not report any prior history of pneumonia. He is a non-smoker. 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 He does not report any ill contacts. No recent chest trauma. Allergies Allergy/AdvReac Type Severity Reaction Status Date / Time No Known Drug Allergies Allergy Verified 12/13/23 21:49 Home Medications Medication Instructions Recorded Confirmed Type flash glucose scanning reader #1 ea 08/26/21 12/01/23 Rx (FreeStyle Timothy 14 Day Protection) flash glucose sensor (FreeStyle #1 ea 08/26/21 12/01/23 Rx Timothy 14 Day Sensor kit) aspirin 81 mg tablet 81 mg PO DAILY 01/14/22 12/13/23 History insulin NPH isoph U-100 human 100 18 unit subcut BID 01/14/22 12/13/23 History unit/mL (3 mL) subcutaneous pen (Humulin N NPH U-100 Insulin KwikPen) omega-3 acid ethyl esters 1 gram 2 cap PO DAILY 01/14/22 12/13/23 History capsule zinc acetate 50 mg (zinc) capsule 50 mg PO DAILY 01/14/22 12/13/23 History empagliflozin 10 mg tablet 10 mg PO DAILY #30 tabs 02/12/23 12/13/23 Rx (Jardiance) doxazosin 4 mg tablet 4 mg PO DAILY #90 tabs 04/14/23 12/13/23 Rx atorvastatin 20 mg tablet 20 mg PO DAILY #90 tabs 04/28/23 12/13/23 Rx multivitamin 1 tab PO DAILY 05/12/23 12/13/23 History metformin 500 mg tablet 500 mg PO BID #60 tabs 07/23/23 12/13/23 Rx irbesartan 300 mg tablet 300 mg PO DAILY #90 tabs 08/18/23 12/13/23 Rx Embrace TALK test strips (blood #200 ea 10/05/23 12/01/23 Rx sugar diagnostic) venlafaxine 37.5 mg 37.5 mg PO DAILY #90 tabs 10/14/23 12/13/23 Rx tablet,extended release 24 hr nifedipine 60 mg tablet,extended 60 mg PO DAILY #90 tabs 11/01/23 12/13/23 Rx release benzonatate 200 mg capsule 200 mg PO TID PRN cough #30 caps 10/16/24 10/28/24 Rx loratadine 10 mg disintegrating 10 mg PO DAILY #30 tabs 12/01/23 12/13/23 Rx tablet prednisone 10 mg tablet See Rx Instructions PO DAILY #30 12/08/23 12/13/23 Rx tabs oxycodone-acetaminophen 5 mg-325 1 tab PO Q6H PRN Pain, Mild 12/13/23 12/13/23 History mg tablet Patient History Surgical History S/P cataract surgery S/P hip replacement History of knee replacement History of cystoscopy WITH URTEROSCOPY AND MANIPULATION OF CALCULUS Status post cystoscopy with ureteral stent placement History of appendectomy Family History Mother Diabetes Hypertension Ovarian cancer Father Diabetes Hypertension Kidney stones Myocardial infarction Sister Family history of uterine cancer Ovarian cancer Denies family history of Prostate cancer Breast cancer Colorectal cancer Social History Smoking Status: Never smoker Second Hand Exposure: No; Do You Dip or Chew Tobacco: No; Hx Alcohol Use: No Hx Substance Use: No Preferred Language: [place] Communication Ability: Effective Visual Impairment: No Limitations Hearing Ability: Normal Reproductive Healthcare Assistant Required: No Beliefs That Will Affect Care: None marital status: Current Living Situation: Spouse current occupational status: employed and retired current occupation: [employer] How many Children do You have: 2 Other Information That Helps Us Care for You: No Feels Safe at Home: Yes Safety Concerns: Feels Safe At This Time Childhood Exposure to Second-Hand Smoke: No Diet: regular caffeine: No during the past year weight has: remained stable Dental Care, Regularly: Yes Physical Activity Frequency: Daily Seatbelt Use: always Sunscreen Use: No Assistive Devices: Denture - Upper Review of Systems Review of Systems: Please refer to admission H&P. No additions or deletions Physical Exam Constitutional: WD/WN, vitals as above Neck: trachea midline, no thyromegaly Respiratory: + dullness to percussion and + cough; no respiratory distress and no labored breathing Auscultation: + diminished lung sounds Cardiovascular: Rate/Rhythm: regular rate Heart Sounds: normal S1, normal S2 and + murmur Extremities: + edema Gastrointestinal (Abdomen): normal bowel sounds, soft, nontender, no hepatosplenomegaly Musculoskeletal: Extremities: extremities normal to inspection Skin: no rashes, warm and dry Neurologic: Nonfocal exam Lymphatic: no cervical lymphadenopathy Results & Data Results & Data Vital Signs (Past 12 Hours) Vital Signs Temp Pulse Pulse Resp BP Pulse Ox O2 Del Method 12/14/23 07:34 36.7 C 96 H 19 115/63 96 High Flow Nasal Cannula 12/14/23 03:11 36.7 C 82 19 149/77 H 97 High Flow Nasal Cannula 12/13/23 22:54 77 12/13/23 21:46 36.5 C 87 22 155/65 H 90 Nasal Cannula 12/13/23 21:45 Nasal Cannula O2 Flow Rate 12/14/23 07:34 10 12/14/23 03:11 10 12/13/23 22:54 12/13/23 21:46 6 12/13/23 21:45 6 Critical Care Results & Data Vital Signs (Past 12 Hours) Vital Signs Temp Pulse Pulse Resp BP Pulse Ox O2 Del Method 12/14/23 07:34 36.7 C 96 H 19 115/63 96 High Flow Nasal Cannula 12/14/23 03:11 36.7 C 82 19 149/77 H 97 High Flow Nasal Cannula 12/13/23 22:54 77 12/13/23 21:46 36.5 C 87 22 155/65 H 90 Nasal Cannula 12/13/23 21:45 Nasal Cannula O2 Flow Rate 12/14/23 07:34 10 12/14/23 03:11 10 12/13/23 22:54 12/13/23 21:46 6 12/13/23 21:45 6 Lab & Micro Results (Past 24 Hours) RBC 3.78 M/uL (4.70-6.10) L 12/14/23 WBC 12.94 K/ul (4.8-10.8) H 12/14/23 Hgb 11.8 g/dl (14.0-18.0) L 12/14/23 Hct 35.7 % (42.0-52.0) L 12/14/23 MCV 94.4 fL (80.0-100.0) 12/14/23 MCH 31.2 pg (25.0-34.0) 12/14/23 MCHC 33.1 g/dL (32.0-36.0) 12/14/23 RDW Standard Deviation 44.8 fL (36.4-46.3) 12/14/23 RDW Coefficient of Variation 12.9 % (11.5-14.5) 12/14/23 Plt Count 371 K/uL (130-400) 12/14/23 MPV 10.3 fL (9.4-12.4) 12/14/23 Neutrophils (%) (Auto) 80.6 % 12/14/23 Lymphocytes (%) (Auto) 6.0 % 12/14/23 Monocytes # (Auto) 1.39 K/uL (0.11-0.59) H 12/14/23 Eosinophils # (Auto) 0.23 K/uL (0.00-0.50) 12/14/23 Immature Granulocyte % (Auto) 0.7 % 12/14/23 Neutrophils # (Auto) 10.44 K/uL (1.40-6.50) H 12/14/23 Lymphocytes # (Auto) 0.77 K/uL (1.20-3.40) L 12/14/23 Monocytes # (Auto) 1.39 K/uL (0.11-0.59) H 12/14/23 Eosinophils # (Auto) 0.23 K/uL (0.00-0.50) 12/14/23 Basophils # (Auto) 0.02 K/uL (0.00-0.20) 12/14/23 Immature Granulocyte # (Auto) 0.09 K/uL (0.01-0.20) 4 Na 137 mmol/L (136-145) 12/14/23 K 4.1 mmol/L (3.5-5.1) 12/14/23 Cl 100 mmol/L (98-107) 12/14/23 CO2 27 mmol/L (21-32) 12/14/23 Anion Gap 10 (3-11) 12/14/23 BUN 43 mg/dl (6-23) H 12/14/23 Creatinine 1.91 mg/dl (0.6-1.4) H 12/14/23 BUN/Creatinine Ratio 22.5 (10-20) H 12/14/23 Glu 169 mg/dl (70-99(Fasting)) H 12/14/23 Ca 9.4 mg/dl (8.6-10.3) 12/14/23 Total Bilirubin 0.5 mg/dl (0.2-1.0) 12/14/23 Direct Bilirubin 0.2 mg/dl (0-0.2) 12/13/23 AST 12 U/L (13-39) L 12/14/23 ALT 12 U/L (7-52) 12/14/23 Alkaline Phosphatase 76 U/L (34-104) 12/14/23 TP 7.1 gm/dl (6.0-8.3) 12/14/23 Albumin 3.2 gm/dl (3.4-5.0) L 12/14/23 Globulin 3.9 gm/dl (2.5-4.0) 12/14/23 Albumin/Globulin Ratio 0.8 (0.9-2) L 12/14/23 Mg 2.1 mg/dl (1.7-2.4) 12/13/23 17:39 Calcium Level 9.4 mg/dl (8.6-10.3) 12/14/23 07:27 Prothromb Time International Ratio 1.0 (0.9-1.1) 12/13/23 17:3 9 Venous Blood pH 7.33 (7.36-7.41) L 12/13/23 17:39 Venous Blood Partial Pressure CO2 52 mmHg (38-50) H 12/13/23 17 :39 Venous Blood Partial Pressure O2 < 20 mmHg 12/13/23 17:39 Venous Blood HCO3 27 mmol/L 12/13/23 17:39 Venous Blood Base Excess 0.6 mEq/L 12/13/23 17:39 Venous Blood Oxygen Saturation < 60.0 % 12/13/23 17:39 Diagnostic Findings (Past 24 Hours) Chest X-Ray 12/13/23 17:36 XR chest 1V portable CLINICAL HISTORY: Sepsis TECHNIQUE: Single frontal radiograph of the chest was obtained. Comparison: Comparison is made to chest radiograph 12/08/2023 FINDINGS: No lines and tubes are seen. Calcified aortic knob is seen. Airspace opacities in the right greater than left lower lung. Right lower lung pleural effusions are seen. IMPRESSION: Right lower lung pleural effusion. Right greater than left airspace opacities, new from prior. This may represent atelectasis, pneumonia, and/or aspiration. ACT 112: Negative or not required by law. Electronically signed by: Didier Zavala M.D. 12/13/2023 6:[address] 12/14/23 01:06 CT chest diagnostic wo con CLINICAL HISTORY: assess right sided effusion TECHNIQUE: Multidetector row helical CT of the chest was performed. Coronal and sagittal reformations were obtained. Automated dose lowering techniques and/or adjustment according to patient size were utilized for this exam. CT DOSE: 829.58 mGy.cm Comparison: Comparison is made to chest radiograph 12/13/2023 FINDINGS: Lungs and pleura: Moderate right pleural effusion is seen with underlying atelectasis. The effusion may be mildly loculated. There is left-sided atelectasis without evidence of pleural effusion. Heart and pericardium: Physiologic pericardial fluid is noted. Vessels: Unremarkable. Mediastinum and lino: Subcentimeter lymph nodes are seen. Chest wall and lower neck: Gynecomastia is noted bilaterally. Abdomen: Unremarkable. Bones: Degenerative changes in the thoracic spine. IMPRESSION: Moderate right pleural effusion, likely mildly loculated, is seen with underlying atelectasis. ACT 112: Negative or not required by law. Electronically signed by: Didier Zavala M.D. 12/14/2023 7:49 AM I & O Totals 24 Hours 12/13/23 12/14/23 12/15/23 06:59 06:59 06:59 Intake Total 560 / 560 Balance 560 / 560 Cumulative 12/13/23 17:19 thru 12/14/23 06:14 Intake Total 560 Balance 560 RT Ventilator Mngmt (Last Documented) Ventilator Ordered Settings Respiratory Rate 19 12/14/23 07:34 Ventilator - PT Measurements Respiratory Rate 19 PG Care Time/CCT Total # of Minutes Spent Total Time Spent with Patient: Total time spent is greater than 50% in coordination of care (as documented) at patient's floor/unit and/or counseling patient: Coding Level of Care Code 62889 INT INP/OBS CARE 3/75MIN Diagnoses Pleural effusion associated with pulmonary infection J18.9; J91.8 Hypoxemia R09.02 Stage 3a chronic kidney disease N18.31 Chronic kidney disease stage 3 subtype: stage 3a (GFR 45-59)
--- NOTE | 2023-12-14 09:32 | Procedure Note ---
Procedure Note Date of Service December 14, 2023 Procedure: 14 Monegasque pigtail catheter placement Indication: Complicated parapneumonic effusion Consent risk and benefits were discussed with the patient. She agreed. Written consent was verified prior to commencement of the procedure. Chlorobutadiene Scrubber Operator Dr. Ludwig Estimated blood loss: Less than 5 mL Anesthesia: 5 mL 1% lidocaine without epinephrine locally. Procedure: Patient mated with a complicated parapneumonic effusion. I discussed risk and benefits of chest tube placement with the patient to include bleeding, need for additional thoracic surgery procedures, or damage to intrathoracic structures. Surgery was presented as an alternative. The patient is agreeable to proceed. The patient was placed in a upper seated position. Limited thoracic ultrasound was performed. In the posterior axillary line at about the level of the nipple I was able to identify path to the fluid pocket which was loculated on the CT scan. The area was marked. Skin and subcutaneous tissues were anesthetized with lidocaine. The muscle and deeper soft tissues were anesthetized using a finder needle. We then transitioned to an 18-gauge needle which I was able to aspirate turbid fluid with. A small skin chad was made with a scalpel. An 18- gauge needle was then advanced on a similar line until I was able to aspirate turbid fluid. The syringe was withdrawn leaving the needle in place. A wire was passed through the needle and then the needle was withdrawn leaving the wire in the pleural space. A 14 Monegasque dilator was then passed over the wire to dilate the skin and soft tissues. This passed with ease. The dilator was removed leaving the wire in place. A 14 Monegasque pigtail catheter was then loaded on a straightening catheter and advanced over the wire into the pleural space. The stiffening catheter and wire were removed leaving the pigtail catheter in place. Locking mechanism was then secured. A three-way stopcock was attached. Total of 300 mL of fluid was withdrawn which was que and turbid for microbiologic and cytologic analysis. The tube was attached to suction with drainage of an additional 300 mL of turbid yellow fluid through the Pleur-evac system. The skater catheter fixation system was attached to the chest wall and the catheter secured. Catheter was attached to suction at 20 cm of water. Post procedure chest x-ray is pending. Initiating mist 2 protocol The patient tolerated the procedure well. [facility] [place] Codes (Charges) Pulmonary/Thoracic Procedure 1: Pulmonary and Thoracic: 45644 Pleural drainage w/imaging Coding CPT Codes Pulmonary/Thoracic - Pulmonary and Thoracic: 33945 Pleural drainage w/imaging ([id number]) Additional Codes Date of Service ([facility].SURGERY)
[2023-12-14] MEDS: MoRPHine SULFATE 2 MG/ML CARP IV PRN (09:42)
--- NOTE | 2023-12-14 09:42 | XRay Report ---
XR chest 1V portable CLINICAL HISTORY: S/P Thoracentesis TECHNIQUE: Single frontal radiograph of the chest was obtained. Comparison: Comparison is made to chest radiograph 12/05/2023 FINDINGS: Right chest tube has been placed within the thoracic cavity. There is interval decrease in size of ri ght pleural effusion. Calcified aortic knob is seen. Right lower lung airspace opacity has improved f rom prior exam. Small right pleural effusion, decreased from prior exam. Likely small left effusion a s well. IMPRESSION: Status post thoracentesis and chest tube placement without evidence of pneumothorax. ACT 112: Negative or not required by law. Electronically signed by: Didier Zavala M.D. 12/14/2023 9:41 AM
[2023-12-14 09:51] LABS: Total Protein Pleural Fluid 5.1 gm/dl
[2023-12-14] MEDS: NIFEdipine EXTENDED REL 30 MG TABCR PO SCH (09:51)
[2023-12-14] MEDS: VENLAFAXINE HCL XR 37.5 MG CAPXR PO SCH (09:51)
[2023-12-14] MEDS: LOSARTAN POTASSIUM 50 MG TAB PO SCH (09:51)
[2023-12-14] MEDS: KETOROLAC 30 MG/ML VIAL IV ONE (10:08)
[2023-12-14] MEDS: KETOROLAC TROMETHAMINE 15 MG/ML VIAL IM ONE (10:09)
--- NOTE | 2023-12-14 10:23 | Hospitalist Progress Note ---
Date of Service December 14, 2023 Assessment & Plan (1) Pleural effusion associated with pulmonary infection: (2) Diabetes mellitus, type II, insulin dependent: (3) CKD (chronic kidney disease) stage 3, GFR 30-59 ml/min: (4) Hypertension: Plan 1. Pleural effusion with pulmonary infection Patient admitted to the hospital on account of worsening chest pain and SOB He has had respiratory symptoms for the last week prior to presentation. He was seen by his primary care as well as the ED in [facility] and was started on PO antibiotic, corticosteroid and opioids for right sided rib pain without improvement. On admission, requiring 4L of oxygen through nasal canula CXR revealed bilateral pleural effusion (right greater than left) and WBC at 14.27. Biofire was negative. In ED blood cultures drawn and pt was started on IV Zosyn 4.5mg. He is now s/p pleurux placement by Pulm for parapneumonic effusion Continue antibiotics and pain mgt Appreciate pulm recs 2. DM2 Hx of uncontrolled DM with complications including nephropathy and retinopathy. Pt's last known A1c on 10/25/23 was 7.3%. - Hold home DM meds - Accuchecks per protocol - Start Glargine 12 Units BID - Start Aspart on sliding scale BSG range 110 low to 140 high. Correction factor 25mg/dL/unit. Carb ratio 8g/unit 3. CKD stage 3 Cr at 1.77. Pt's base line Cr is 1.2. Avoid nephrotoxics 4. HTN Blood pressures have been stable. Plan to continue home meds. - Continue irbesartan 300mg PO qd - Continue nifedipine 60mg PO qd 5 Leg swelling Worsening leg edema Will obtain BNP and 2 D ECHO Other chronic conditions: - HLD: Continue home med of atorvastatin PO 20mg - Depression: Continue Venlafaxine PO 37.5 mg qd Dispo: Med tele Diet: Carb control DM2 VTE prophylaxis: SCDs Code; DNR/DNI Admission and Anticipated Discharge Date Admission Date: December 13, 2023 Subjective patient seen and examined, still has a lot of chest pain and sob, awaitng chest tube placement Review of Systems Review of Systems: All systems reviewed are negative, apart from the ones contained in the history. Physical Exam Physical Exam: The patient is awake, alert and oriented 3, well developed and well nourished, normocephalic and atraumatic, lying in bed and in no acute distress. HEENT--PERRL, EOMI, mucous membranes and oropharynx mildly dry Neck--supple. No JVD. No bruits. Thyroid normal, trachea midline, no a denopathy. Heart--normal S1 and S2. No murmurs, rubs or gallops. Lungs--reduced air entry on ausculatation Abdomen--normal bowel sounds and soft. Extremities--no cyanosis or clubbing. Bilateral leg edema. Dermatologic--normal skin turgor, normal color, no abnormal lymph nodes, no rash. Neurologic--cranial nerves II through XII grossly intact. Rheumatologic--normal range of motion. Psychiatric--normal affect. Results & Data Results & Data Vital Signs (Past 12 Hours) Vital Signs Temp Pulse Pulse Resp BP Pulse Ox O2 Del Method 12/14/23 07:34 98.1 F 96 H 19 115/63 96 High Flow Nasal Cannula 12/14/23 03:11 98.1 F 82 19 149/77 H 97 High Flow Nasal Cannula 12/13/23 22:54 77 O2 Flow Rate 12/14/23 07:34 10 12/14/23 03:11 10 12/13/23 22:54 PG Care Time/CCT Total # of Minutes Spent Total Time Spent with Patient: Total time spent is greater than 50% in coordination of care (as documented) at patient's floor/unit and/or counseling patient: Coding Level of Care Code 87026 SUB INP/OBS CARE 2/35MIN Diagnoses Pleural effusion associated with pulmonary infection J18.9; J91.8 Diabetes mellitus, type II, insulin dependent E11.9; Z79.4 Stage 3a chronic kidney disease N18.31 Chronic kidney disease stage 3 subtype: stage 3a (GFR 45-59) Primary hypertension I10 Hypertension type: primary hypertension Time Spent (min) 35 (3) CKD (chronic kidney disease) stage 3, GFR 30-59 ml/min Chronic kidney disease stage 3 subtype: stage 3a (GFR 45-59) Qualified Code(s): N18.31 - Chronic kidney disease, stage 3a (4) Hypertension Hypertension type: primary hypertension Qualified Code(s): I10 - Essential (primary) hypertension
[2023-12-14] MEDS ORDERED: Nursing to Pharmacy Communication SCH (10:30)
[2023-12-14] MEDS: ALTEPLASE, RECOMBINANT 10 MG in SYRINGE 50 ML IPL SCH (10:38)
[2023-12-14 11:00] LABS: Appearance Pleural Fluid Hazy; Color Pleural Fluid Amber; RBC Pleural Fluid Auto 14000 /uL; Source Pleural Fluid Right Lung; WBC Pleural Fluid Auto 2420 /uL
[2023-12-14 11:01] LABS: Lymphocytes, Fluid 15 %; Mono,Macrophage,Mesothelial 6 %; Neutrophils, Fluid 79 %
[2023-12-14] MEDS: ATORVASTATIN 20 MG TAB PO SCH ×2 (11:06→21:28)
[2023-12-14] MEDS: DOXAZosin MESYLATE 4 MG TAB PO SCH ×2 (11:07→21:28)
--- NOTE | 2023-12-14 11:16 | Electrocardiogram Report ---
Test Reason : Blood Pressure : */* mmHG Vent. Rate : 97 BPM Atrial Rate : 97 BPM P-R Int : 156 ms QRS Dur : 88 ms QT Int : 326 ms P-R-T Axes : 40 67 17 degrees QTcB Int : 414 ms Normal sinus rhythm When compared with ECG of 03-Jul-2015 08:18, Nonspecific T wave abnormality now evident in Inferior leads Confirmed by Rob Townsend ([id number]) on 12/14/2023 11:15:54 AM Referred By: REFERRED SELF Confirmed By: Rob Townsend
[2023-12-14] MEDS: DORNASE ALFA 5 ML in SYRINGE 25 ML IPL SCH (11:49)
[2023-12-14] MEDS: HYDROmorphone INJ 1 MG/ML SYRINGE IV PRN (15:46)
[2023-12-14] MEDS: KETOROLAC TROMETHAMINE 15 MG/ML VIAL IV PRN (19:30)
[2023-12-15] MEDS: HYDROmorphone INJ 0.5 MG/0.5 ML SYR IV STA (00:28)
[2023-12-15 06:32] LABS: Basophils # (auto) 0.02 K/uL (0.00-0.20); Basophils % (auto) 0.2 %; Eosinophils # (auto) 0.13 K/uL (0.00-0.50); Hematocrit (blood only) 35.1 % (42.0-52.0); Hemoglobin 11.6 g/dl (14.0-18.0); Immature Granulocytes # (auto) 0.09 K/uL (0.01-0.20); Immature Granulocytes % (auto) 0.7 %; Lymphocytes % (auto) 5.6 %; Mean Corpuscular Hemoglobin 31.2 pg (25.0-34.0); Mean Corpuscular Volume 94.4 fL (80.0-100.0); Mean Platelet Volume 10.3 fL (9.4-12.4); Monocytes # (auto) 1.47 K/uL (0.11-0.59); Monocytes % (auto) 11.8 %; Neutrophils # (auto) 10.05 K/uL (1.40-6.50); Neutrophils % (auto) 80.7 %; Platelet Count 379 K/uL (130-400); RDW Standard Deviation 44.8 fL (36.4-46.3); Red Blood Count 3.72 M/uL (4.70-6.10); White Blood Count 12.46 K/ul (4.8-10.8)
[2023-12-15 06:53] LABS: Albumin Globulin Ratio 0.7 (0.9-2); BUN Creatinine Ratio 21.5 (10-20); Bilirubin,Total 0.4 mg/dl (0.2-1.0); Calcium 9.2 mg/dl (8.6-10.3); Creatinine Clr Calc Pharmacy 30.2 ml/min; Globulin 4.1 gm/dl (2.5-4.0); Potassium 4.9 mmol/L (3.5-5.1); Total Protein 7.1 gm/dl (6.0-8.3)
--- NOTE | 2023-12-15 07:30 | XRay Report ---
XR chest 1V portable CLINICAL HISTORY: Chest tube ? MIST 2 protocol TECHNIQUE: Single frontal radiograph of the chest was obtained. Comparison: Comparison is made to chest radiograph 12/14/2023 FINDINGS: Right chest tube is seen. Calcified aortic knob is seen. Bibasilar atelectasis is seen. Trace bilater al pleural effusions. No pneumothorax is seen. IMPRESSION: Stable exam, a right chest tube is in place. No evidence of pneumothorax. Stable small bilateral pleu ral effusions. ACT 112: Negative or not required by law. Electronically signed by: Didier Zavala M.D. 12/15/2023 7:27 AM
--- NOTE | 2023-12-15 08:23 | Pulmonology Progress Note ---
Date of Service December 15, 2023 Assessment & Plan (1) Pleural effusion associated with pulmonary infection: (2) Hypoxemia: (3) CKD (chronic kidney disease) stage 3, GFR 30-59 ml/min: Chronic kidney disease stage 3 subtype: stage 3a (GFR 45-59) Qualified Code(s): N18.31 - Chronic kidney disease, stage 3a Plan Impression: 78-year-old male with parapneumonic loculated complicated effusion status post pigtail catheter placement currently undergoing intrapleural fibrinolysis. Recommendations: 1. Complicated parapneumonic effusion: Chest x-ray improved today. Continue mist 2 protocol. Continue pigtail catheter until drainage less than 200 cc/day and the patient shows significant clinical and radiographic improvement 2. Patient is currently on Zosyn day #3. If cultures remain negative, can likely de-escalate to Unasyn or Augmentin in the next 24 hours. White count remains slightly elevated. Patient is afebrile 3. Acute kidney injury: Serum creatinine increased today. Discontinue Toradol. Check urine for eosinophils 4. Hypoxemia: Continue to wean oxygen as tolerated. Will initiate incentive spirometry. Will follow with you Admission and Anticipated Discharge Date Admission Date: December 13, 2023 Subjective Patient seen and examined. EMR reviewed. The patient is currently sitting up in a chair. He thinks his pain is better controlled but he still unable to sleep in the supine position. He feels significantly better than yesterday. He has not had fevers chills or night sweats overnight. Review of Systems 2 Review of Systems: All systems reviewed & are unremarkable except as noted in Subjective Physical Exam 2 Constitutional: WD/WN, vitals as above Neck: trachea midline, no thyromegaly Respiratory: + dullness to percussion and + cough; no respiratory distress and no labored breathing Auscultation: + diminished lung sounds Cardiovascular: Rate/Rhythm: regular rate Heart Sounds: normal S1, normal S2 and + murmur Extremities: + edema Gastrointestinal (Abdomen): normal bowel sounds, soft, nontender, no hepatosplenomegaly Musculoskeletal: Extremities: extremities normal to inspection Skin: no rashes, warm and dry Lymphatic: no cervical lymphadenopathy Results & Data Results & Data Vital Signs (Past 12 Hours) Vital Signs Temp Pulse Pulse Resp BP Pulse Ox O2 Del Method 12/15/23 07:53 36.5 C 77 19 112/65 96 High Flow Nasal Cannula 12/14/23 23:45 36.7 C 87 19 108/64 90 High Flow Nasal Cannula 12/14/23 22:27 83 O2 Flow Rate 12/15/23 07:53 6.5 12/14/23 23:45 10 12/14/23 22:27 Laboratory Results 12/15/23 05:56 12/15/23 05:56 12/13/23 17:39 VBG pH 7.33 L VBG pCO2 52 H VBG pO2 < 20 VBG HCO3 27 VBG O2 Saturation < 60.0 VBG Base Excess 0.6 Microbiology 12/13/23 18:22 Blood Aerobic Blood Culture - Preliminary No growth in Aerobic bottle after 24 hours. 12/13/23 18:22 Blood Anaerobic Blood Culture - Final 12/13/23 17:37 Blood Aerobic Blood Culture - Preliminary No growth in Aerobic bottle after 24 hours. 12/13/23 17:37 Blood Anaerobic Blood Culture - Preliminary No growth in Anaerobic bottle after 24 hours. 12/14/23 08:50 Pleural Fluid Gram Stain - Final Pleural fluid studies: Differential 79% neutrophils, 15% lymphocytes, 6% mesothelial cells pH 7.28 LDH 549 Glucose 151 Total protein 5.1 Gram stain showed few white blood cells with no organisms, cultures no growth to date Pleural fluid cytology showed neutrophilic process likely consistent with empyema Diagnostic Findings Chest x-ray from today was independently reviewed. Tubes in good position. There is decrease effusion on the right side. Pulmonary aeration appears improved. PG Care Time/CCT Total # of Minutes Spent Total Time Spent with Patient: Total time spent is greater than 50% in coordination of care (as documented) at patient's floor/unit and/or counseling patient: Coding Level of Care Code 33867 SUB INP/OBS CARE 2/35MIN Diagnoses Pleural effusion associated with pulmonary infection J18.9; J91.8 Hypoxemia R09.02 Stage 3a chronic kidney disease N18.31 Chronic kidney disease stage 3 subtype: stage 3a (GFR 45-59)
--- NOTE | 2023-12-15 08:25 | Hospitalist Progress Note ---
Date of Service December 15, 2023 Assessment & Plan (1) Pleural effusion associated with pulmonary infection: Plan: Pleural effusion with pulmonary infection for pneumonia was on PO antibiotic, corticosteroid and opioids has parapneumonic effusion . On admission, acute hypoxic respiratory failure requiring 4L of oxygen through nasal canula respiratory Biofire was negative. In ED blood cultures drawn and pt was started on IV Zosyn 4.5mg. He is now s/p Pleurx placement by Pulm for parapneumonic effusion, mist 2 protocol, some pain afterward Continue antibiotics and pain mgt (2) Diabetes mellitus, type II, insulin dependent: Plan: DM2 Hx of uncontrolled DM with complications including nephropathy and retinopathy. Pt's last known A1c on 10/25/23 was 7.3%. - Hold home DM meds - Accuchecks per protocol - Start Glargine 15 Units BID - Start Aspart on sliding scale BSG range 110 low to 140 high. Correction factor 20mg/dL/unit. Carb ratio 7g/unit (3) CKD (chronic kidney disease) stage 3, GFR 30-59 ml/min: Plan: CKD stage 3 Cr at 1.77. Pt's base line Cr is 1.2. Avoid nephrotoxics (4) Hypertension: Plan: Blood pressures have been stable. Plan to continue home meds. - Continue irbesartan 300mg PO qd - Continue nifedipine 60mg PO qd Leg swelling Worsening leg edema Will obtain 2 D ECHO, bnp is normal Plan - HLD: Continue home med of atorvastatin PO 20mg - Depression: Continue Venlafaxine PO 37.5 mg qd Diet: Carb control DM2 VTE prophylaxis: SCDs Code; DNR/DNI Admission and Anticipated Discharge Date Admission Date: December 13, 2023 Subjective pt was seen before mist II re application pain is improved but still pleuritic Physical Exam Physical Exam: lungs are diminished at the bases, pleuritic pain 1 + edema to lower extremities b/l Results & Data Results & Data Vital Signs (Past 12 Hours) Vital Signs Temp Pulse Pulse Resp BP Pulse Ox O2 Del Method 12/15/23 07:53 97.7 F 77 19 112/65 96 High Flow Nasal Cannula 12/14/23 23:45 98.1 F 87 19 108/64 90 High Flow Nasal Cannula 12/14/23 22:27 83 O2 Flow Rate 12/15/23 07:53 6.5 12/14/23 23:45 10 12/14/23 22:27 Laboratory Results reviewed cbc reviewed chemistry reviewed stat cxr due to hypoxia, no new findings PG Care Time/CCT Total # of Minutes Spent Total Time Spent with Patient: Total time spent is greater than 50% in coordination of care (as documented) at patient's floor/unit and/or counseling patient: Coding Level of Care Code 20997 SUB INP/OBS CARE 3/50MIN Diagnoses Pleural effusion associated with pulmonary infection J18.9; J91.8 Diabetes mellitus, type II, insulin dependent E11.9; Z79.4 Stage 3a chronic kidney disease N18.31 Chronic kidney disease stage 3 subtype: stage 3a (GFR 45-59) Primary hypertension I10 Hypertension type: primary hypertension (3) CKD (chronic kidney disease) stage 3, GFR 30-59 ml/min Chronic kidney disease stage 3 subtype: stage 3a (GFR 45-59) Qualified Code(s): N18.31 - Chronic kidney disease, stage 3a (4) Hypertension Hypertension type: primary hypertension Qualified Code(s): I10 - Essential (primary) hypertension
[2023-12-15] MEDS: KETOROLAC 30 MG/ML VIAL IV ONE (13:31)
--- NOTE | 2023-12-15 13:47 | XRay Report ---
SINGLE VIEW CHEST CLINICAL HISTORY: Chest tube. Dyspnea FINDINGS: An AP, portable, upright chest radiograph is compared to study dated 12/15/2023 and correla nita with chest CT dated 12/14/2023. The heart is enlarged and noting atherosclerotic calcification of the thoracic aorta. Chest tube at the right lung base is unchanged in position. There is pulmonary v ascular congestion. There are small pleural effusions. Dependent consolidation is noted at both lung bases. No pneumothorax is clearly seen. The skeletal structures are osteopenic. The bony thorax is gr ossly intact. IMPRESSION: 1. Cardiomegaly with pulmonary vascular congestion. 2. Small pleural effusions with dependent consolidation. 3. A chest tube is seen at the right lung base. No pneumothorax is clearly identified. ACT 112: Negative or not required by law. Electronically signed by: Wesly Lebron M.D. 12/15/2023 1:46 PM
[2023-12-15] MEDS: LANTUS PER UNIT CHARGE SQ SCH (21:06)
[2023-12-16] MEDS: HYDROmorphone INJ 0.5 MG/0.5 ML SYR IV STA (03:54)
[2023-12-16] MEDS: POLYETHYLENE (MIRALAX) 17 GM PACK ONE (06:03)
[2023-12-16] MEDS: POLYETHYLENE (MIRALAX) 17 GM PACK PO PRN (06:22)
[2023-12-16 06:47] LABS: Basophils # (auto) 0.03 K/uL (0.00-0.20); Basophils % (auto) 0.3 %; Hematocrit (blood only) 36.7 % (42.0-52.0); Immature Granulocytes # (auto) 0.05 K/uL (0.01-0.20); Immature Granulocytes % (auto) 0.5 %; Lymphocytes # (auto) 0.75 K/uL (1.20-3.40); Lymphocytes % (auto) 7.4 %; Mean Corpuscular Hemoglobin 30.9 pg (25.0-34.0); Mean Corpuscular Hgb Conc 32.7 g/dL (32.0-36.0); Mean Corpuscular Volume 94.6 fL (80.0-100.0); Mean Platelet Volume 10.3 fL (9.4-12.4); Monocytes # (auto) 1.14 K/uL (0.11-0.59); Monocytes % (auto) 11.2 %; Neutrophils # (auto) 7.89 K/uL (1.40-6.50); Neutrophils % (auto) 77.6 %; Platelet Count 379 K/uL (130-400); RDW Coefficient of Variation 13.3 % (11.5-14.5); RDW Standard Deviation 45.9 fL (36.4-46.3); Red Blood Count 3.88 M/uL (4.70-6.10); White Blood Count 10.16 K/ul (4.8-10.8)
[2023-12-16 07:09] LABS: Albumin Globulin Ratio 0.7 (0.9-2); Albumin Level 3.1 gm/dl (3.4-5.0); BUN Creatinine Ratio 24.7 (10-20); Bilirubin,Total 0.4 mg/dl (0.2-1.0); Calcium 9.3 mg/dl (8.6-10.3); Creatinine Clr Calc Pharmacy 25.9 ml/min; Globulin 4.3 gm/dl (2.5-4.0); Potassium 4.4 mmol/L (3.5-5.1); Total Protein 7.4 gm/dl (6.0-8.3)
--- NOTE | 2023-12-16 07:43 | XRay Report ---
XR chest 1V portable CLINICAL HISTORY: Chest tube ? MIST 2 protocol COMPARISON STUDY: Chest radiograph December 15, 2023 at 1:34 PM. FINDINGS: Right basilar pleural catheter is unchanged in position. Several sideholes appear to be wit hin the chest wall. There is no pneumothorax. A small right pleural effusion is similar to prior exam . Associated right basilar opacity is unchanged. Left basilar opacity is unchanged. Cardiomediastinal silhouette is stable. Low lung volumes are again noted. Congestion is unchanged. IMPRESSION: 1. Right basilar pleural catheter unchanged in position. Tip remains within the chest. Several sideho les appear to be within the chest wall. 2. No pneumothorax. 3. No change in a small right pleural effusion with associated right basilar opacity. ACT 112: Negative or not required by law. Electronically signed by: Anurag Paz M.D. 12/16/2023 7:41 AM
--- NOTE | 2023-12-16 08:01 | Hospitalist Progress Note ---
Date of Service December 16, 2023 Assessment & Plan (1) Pleural effusion associated with pulmonary infection: Plan: Pleural effusion with pulmonary infection for pneumonia was on PO antibiotic, corticosteroid and opioids has parapneumonic effusion . On admission, acute hypoxic respiratory failure requiring 4L of oxygen through nasal canula respiratory Biofire was negative. In ED blood cultures drawn and pt was started on IV Zosyn 4.5mg. He is now s/p Pleurx placement by Pulm for parapneumonic effusion, mist 2 protocol, some pain afterward Continue antibiotics and pain mgt (2) Diabetes mellitus, type II, insulin dependent: Plan: DM2 Hx of uncontrolled DM with complications including nephropathy and retinopathy. Pt's last known A1c on 10/25/23 was 7.3%. - Hold home DM meds - Accuchecks per protocol - Start Glargine 15 Units BID - Start Aspart on sliding scale BSG range 110 low to 140 high. Correction factor 20mg/dL/unit. Carb ratio 7g/unit (3) CKD (chronic kidney disease) stage 3, GFR 30-59 ml/min: Plan: denise now suspect pre renal due to volume loss with thoracentesis and did have toradol for pain hold arb, 500ml ivf, consider renal consult, potassium and bicarb are stable CKD stage 3 (4) Hypertension: Plan: Blood pressures have been stable. Plan to continue home meds. - Continue irbesartan 300mg PO qd - Continue nifedipine 60mg PO qd Leg swelling Worsening leg edema consider 2 D ECHO, bnp is normal Plan - HLD: Continue home med of atorvastatin PO 20mg - Depression: Continue Venlafaxine PO 37.5 mg qd Diet: Carb control DM2 VTE prophylaxis: SCDs Code; DNR/DNI Admission and Anticipated Discharge Date Admission Date: December 13, 2023 Subjective pt is still with intermittent pain, worse after MIST, still in need for pain meds pt developed denise likely due to dehydration from volume loss Physical Exam Physical Exam: lungs are diminished at the bases, pleuritic pain 1 + edema to lower extremities b/l Results & Data Results & Data Vital Signs (Past 12 Hours) Vital Signs Temp Pulse Pulse Resp BP BP Pulse Ox 12/16/23 07:51 97.3 F L 79 20 126/72 95 12/16/23 07:00 84 12/16/23 03:36 97.3 F L 84 20 104/61 95 12/16/23 00:53 77 12/15/23 23:28 97.9 F 81 20 122/67 97 12/15/23 20:00 O2 Del Method O2 Flow Rate 12/16/23 07:51 Nasal Cannula 11.0 12/16/23 07:00 12/16/23 03:36 Nasal Cannula, High Flow Nasal Cannula 8 12/16/23 00:53 12/15/23 23:28 High Flow Nasal Cannula 9 12/15/23 20:00 Nasal Cannula 9 Laboratory Results reviewed cbc reviewed chemistry,. worsened BUN/CR PG Care Time/CCT Total # of Minutes Spent Total Time Spent with Patient: Total time spent is greater than 50% in coordination of care (as documented) at patient's floor/unit and/or counseling patient: Coding Level of Care Code 20061 SUB INP/OBS CARE 3/50MIN Diagnoses Pleural effusion associated with pulmonary infection J18.9; J91.8 Diabetes mellitus, type II, insulin dependent E11.9; Z79.4 Stage 3a chronic kidney disease N18.31 Chronic kidney disease stage 3 subtype: stage 3a (GFR 45-59) Primary hypertension I10 Hypertension type: primary hypertension (3) CKD (chronic kidney disease) stage 3, GFR 30-59 ml/min Chronic kidney disease stage 3 subtype: stage 3a (GFR 45-59) Qualified C ode(s): N18.31 - Chronic kidney disease, stage 3a (4) Hypertension Hypertension type: primary hypertension Qualified Code(s): I10 - Essential (primary) hypertension
[2023-12-16] MEDS: SODIUM CHLORIDE 0.9% 500 ML IV SCH (08:45)
--- NOTE | 2023-12-16 09:02 | Pulmonology Progress Note ---
Date of Service December 16, 2023 Assessment & Plan (1) Pleural effusion associated with pulmonary infection: (2) Hypoxemia: (3) CKD (chronic kidney disease) stage 3, GFR 30-59 ml/min: Chronic kidney disease stage 3 subtype: stage 3a (GFR 45-59) Qualified Code(s): N18.31 - Chronic kidney disease, stage 3a Plan Impression: 78-year-old male with parapneumonic loculated complicated effusion status post pigtail catheter placement currently undergoing intrapleural fibrinolysis. Recommendations: 1. Complicated parapneumonic effusion: Chest x-ray improved today. Continue mist 2 protocol. Continue pigtail catheter until drainage less than 200 cc/day and the patient shows significant clinical and radiographic improvement 2. Patient is currently on Zosyn day #4. Can de-escalate to oral Augmentin. White count now normal. Patient is afebrile 3. Acute kidney injury: Serum creatinine increased today. Urine eosinophils not resulted. Defer to hospitalist additional management. 4. Hypoxemia: Continue to wean oxygen as tolerated. Continue incentive spirometry. Will follow with you Admission and Anticipated Discharge Date Admission Date: December 13, 2023 Subjective Patient seen and examined. EMR reviewed. The patient is improving slowly. He did have an episode of possible aspiration with some coughing last evening which resulted in increasing chest pain and some bloody drainage. This resolved. He overall is feeling better. His chest x-ray continues to demonstrate improvement. Output from the drain continues to be prohibitive for discontinuation. He has not had any hemoptysis. No fevers chills night sweats or other constitutional symptoms Review of Systems 2 Review of Systems: All systems reviewed & are unremarkable except as noted in Subjective Physical Exam 2 Constitutional: WD/WN, vitals as above Neck: trachea midline, no thyromegaly Respiratory: + dullness to percussion and + cough; no respiratory distress and no labored breathing Auscultation: + diminished lung sounds Cardiovascular: Rate/Rhythm: regular rate Heart Sounds: normal S1, normal S2 and + murmur Extremities: + edema Gastrointestinal (Abdomen): normal bowel sounds, soft, nontender, no hepatosplenomegaly Musculoskeletal: Extremities: extremities normal to inspection Skin: no rashes, warm and dry Lymphatic: no cervical lymphadenopathy Results & Data Results & Data Vital Signs (Past 12 Hours) Vital Signs Temp Pulse Pulse Resp BP BP Pulse Ox 12/16/23 07:51 36.3 C L 79 20 126/72 95 12/16/23 07:00 84 12/16/23 03:36 36.3 C L 84 20 104/61 95 12/16/23 00:53 77 12/15/23 23:28 36.6 C 81 20 122/67 97 O2 Del Method O2 Flow Rate 12/16/23 07:51 Nasal Cannula 11.0 12/16/23 07:00 12/16/23 03:36 Nasal Cannula, High Flow Nasal Cannula 8 12/16/23 00:53 12/15/23 23:28 High Flow Nasal Cannula 9 Laboratory Results 12/16/23 06:10 12/16/23 06:10 Pleural fluid cultures no growth to date Diagnostic Findings Chest x-ray today independently reviewed. Small right effusion with right basilar atelectasis PG Care Time/CCT Total # of Minutes Spent Total Time Spent with Patient: Total time spent is greater than 50% in coordination of care (as documented) at patient's floor/unit and/or counseling patient: Coding Level of Care Code 63612 SUB INP/OBS CARE 2/35MIN Diagnoses Pleural effusion associated with pulmonary infection J18.9; J91.8 Hypoxemia R09.02 Stage 3a chronic kidney disease N18.31 Chronic kidney disease stage 3 subtype: stage 3a (GFR 45-59)
[2023-12-16] MEDS: AMOXICILLIN/CLAVULANATE 500 MG TAB PO SCH (17:36)
[2023-12-17 05:15] LABS: Basophils # (auto) 0.03 K/uL (0.00-0.20); Basophils % (auto) 0.3 %; Eosinophils # (auto) 0.42 K/uL (0.00-0.50); Eosinophils % (auto) 4.9 %; Hematocrit (blood only) 31.7 % (42.0-52.0); Hemoglobin 10.5 g/dl (14.0-18.0); Immature Granulocytes # (auto) 0.04 K/uL (0.01-0.20); Immature Granulocytes % (auto) 0.5 %; Lymphocytes # (auto) 0.97 K/uL (1.20-3.40); Lymphocytes % (auto) 11.3 %; Mean Corpuscular Hemoglobin 30.8 pg (25.0-34.0); Mean Corpuscular Hgb Conc 33.1 g/dL (32.0-36.0); Mean Platelet Volume 10.1 fL (9.4-12.4); Monocytes # (auto) 0.96 K/uL (0.11-0.59); Monocytes % (auto) 11.2 %; Neutrophils # (auto) 6.17 K/uL (1.40-6.50); Neutrophils % (auto) 71.8 %; Platelet Count 352 K/uL (130-400); RDW Coefficient of Variation 13.5 % (11.5-14.5); RDW Standard Deviation 46.2 fL (36.4-46.3); Red Blood Count 3.41 M/uL (4.70-6.10); White Blood Count 8.59 K/ul (4.8-10.8)
[2023-12-17 05:32] LABS: Albumin Globulin Ratio 0.7 (0.9-2); Albumin Level 2.7 gm/dl (3.4-5.0); BUN Creatinine Ratio 29.3 (10-20); Bilirubin,Total 0.3 mg/dl (0.2-1.0); Creatinine Clr Calc Pharmacy 28.8 ml/min; Globulin 3.8 gm/dl (2.5-4.0); Potassium 4.2 mmol/L (3.5-5.1); Total Protein 6.5 gm/dl (6.0-8.3)
--- NOTE | 2023-12-17 07:45 | XRay Report ---
XR chest 1V portable CLINICAL HISTORY: Chest tube ? MIST 2 protocol COMPARISON STUDY: Chest CT December 14, 2023. Chest radiograph December 16, 2023. FINDINGS: Right basilar pleural catheter is unchanged in position. No right apical pneumothorax is no nita. There is a small lucency within the right lower lung. Small right pleural effusion is unchanged. Persistent bibasilar opacities are noted. Cardiomegaly and pulmonary vascular congestion is similar to prior exam. There are low lung volumes. IMPRESSION: 1. No change in position of a right basilar pleural catheter. Subtle lucency within the right lower l shahrzad. This likely reflects aerated lung however a small amount of pleural gas could appear similar. 2. Small right pleural effusion with persistent right basilar opacity. 3. Slight increase in left basilar opacity. 4. Cardiomegaly with pulmonary vascular congestion. ACT 112: Negative or not required by law. Electronically signed by: Anurag Paz M.D. 12/17/2023 7:42 AM
--- NOTE | 2023-12-17 09:04 | Pulmonology Progress Note ---
Date of Service December 17, 2023 Assessment & Plan (1) Pleural effusion associated with pulmonary infection: (2) Hypoxemia: (3) CKD (chronic kidney disease) stage 3, GFR 30-59 ml/min: Chronic kidney disease stage 3 subtype: stage 3a (GFR 45-59) Qualified Code(s): N18.31 - Chronic kidney disease, stage 3a Plan Impression: 78-year-old male with parapneumonic loculated complicated effusion status post pigtail catheter placement currently undergoing intrapleural fibrinolysis. Recommendations: 1. Complicated parapneumonic effusion: Chest x-ray stable. Will repeat noncontrast CT scan today to ensure that the previously noted loculated fluid collections have resolved given persistent pain. 2. Patient is currently day #5 antimicrobial therapy, currently on oral Augmentin. Cultures remain no growth to date. 3. Acute kidney injury: Serum creatinine improved today. 4. Hypoxemia: Continue to wean oxygen as tolerated. Continue incentive spirometry. Will follow with you Admission and Anticipated Discharge Date Admission Date: December 13, 2023 Subjective Patient seen and examined. EMR reviewed. The patient was able to sleep in the chair last night. His pain is better controlled but still problematic. He is trying to avoid coughing due to pain issues. He is not experiencing any shortness of breath or wheezing. No sputum production. He is tolerating a diet. Review of Systems 2 Review of Systems: All systems reviewed & are unremarkable except as noted in Subjective Physical Exam 2 Constitutional: WD/WN, vitals as above Neck: trachea midline, no thyromegaly Respiratory: + dullness to percussion and + cough; no respiratory distress and no labored breathing Auscultation: + diminished lung sounds Cardiovascular: Rate/Rhythm: regular rate Heart Sounds: normal S1, normal S2 and + murmur Extremities: + edema Gastrointestinal (Abdomen): normal bowel sounds, soft, nontender, no hepatosplenomegaly Musculoskeletal: Extremities: extremities normal to inspection Skin: no rashes, warm and dry Lymphatic: no cervical lymphadenopathy Results & Data Results & Data Vital Signs (Past 12 Hours) Vital Signs Temp Pulse Pulse Resp BP BP Pulse Ox 12/17/23 07:45 36.6 C 86 20 144/72 H 94 12/17/23 02:35 36.4 C L 78 18 128/64 92 12/17/23 00:48 80 12/16/23 22:46 36.2 C L 85 20 115/66 94 12/16/23 22:11 O2 Del Method O2 Flow Rate 12/17/23 07:45 High Flow Nasal Cannula 11.0 12/17/23 02:35 High Flow Nasal Cannula 9 12/17/23 00:48 12/16/23 22:46 High Flow Nasal Cannula 10 12/16/23 22:11 High Flow Nasal Cannula 12 Laboratory Results 12/17/23 04:58 12/17/23 04:58 PG Care Time/CCT Total # of Minutes Spent Total Time Spent with Patient: Total time spent is greater than 50% in coordination of care (as documented) at patient's floor/unit and/or counseling patient: Coding Level of Care Code 00686 SUB INP/OBS CARE 2MIN Diagnoses Pleural effusion associated with pulmonary infection J18.9; J91.8 Hypoxemia R09.02 Stage 3a chronic kidney disease N18.31 Chronic kidney disease stage 3 subtype: stage 3a (GFR 45-59)
[2023-12-17] MEDS: traMADol HCL 50 MG TABLET PO PRN (10:13)
--- NOTE | 2023-12-17 13:55 | CT Scan Report ---
Exam: CT of the thorax without contrast. Comparison studies: Radiograph of the chest dated 12/15/[address] of the thorax dated 12/14/2023. Technique: Contiguous helical images were acquired from the thoracic inlet to the upper abdomen without the administration of intravenous contrast. Axial, coronal, and sagittal reconstructions were performed. Findings: Pleural catheter extends through the right lateral seventh intercostal space into the pleura with loculated moderate-sized pleural effusion which attenuates at 17 Hounsfield units. There is loculatedfluid within the pleural space along the azygous esophageal recess, which does not appear to communicate with the pleura, in which the catheter is positioned. Airspace opacities with air bronchograms in the basilar lower lobes and middle lobe. Thickened pleural rind throughout the right basilar hemithorax. Airway is patent. No significant mediastinal adenopathy. Multiple calcified bilateral hilar lymph nodes. Heart size is normal and is without pericardial effusion. Aortic valvular calcification. Calcification of the transverse thoracic aorta. Degenerative changes of the lower cervical spine and acromioclavicular joints. No acute osseous abnormality. Punctate splenic calcifications, likely secondary to previous granulomatous disease. Impression: Interval pleural catheter placement with resolving loculated moderate size right pleural effusion with partial collapse of the middle and lower lobes. Underlying infection is not excluded. Persistent focus of loculated fluid in the pleura along the basilar right lower lobe, which is not being drained by the catheter. Electronically signed by Johnny Garcia 12-17-2023 13:55 PM
--- NOTE | 2023-12-17 21:07 | Hospitalist Progress Note ---
Date of Service December 17, 2023 Assessment & Plan (1) Pleural effusion associated with pulmonary infection: Plan: Acute hypoxic respiratory failure with O2 sat 84% on room air (12/13/2023, 5:24pm). Etiology of acute hypoxic respiratory failure is most likely due to a loculated RLL parapneumonic effusion (first detected on 12/14/2023, 1:06am CT chest without contrast), and which is not being drained by current R chest tube, which was placed on 12/14/2023, 9:29am with [employer] Dr. David Ludwig, who withdrew 300 mL of que-colored fluid initially, followed by an additional 300 mL of turbid yellow-colored fluid once the R chest tube was attached to suction with drainage. On 12/15/2023 and on 12/16/2023, patient was still expressing more than 200 mL of effluent via R chest tube. On 12/17/2023, patient expressed 340 mL of effluent via R chest tube. Goal for removal of R chest tube: < 200 mL of effluent per 24 hours. Acute hypoxic respiratory failure in [facility] was first treated with 4 liters / minute O2 via Oxymask; subsequently, patient's O2 saturation increased from 84% on room air (12/13/2023, 5:24pm) to 91% on 4 liters/minute O2 via Oxymask (12/13/2023, 5:47pm). Patient was subsequently transitioned to high flow O2 via nasal cannula 10 liters/minute (12/14/2023, 3:11am), and patient's O2 saturation increased to 97% (12/14/2023, 3:11am). Patient was subsequently transitioned to high flow O2 via nasal cannula 12 liters/minute (12/15/2023, 1:06pm), and patient's O2 saturation decreased to 95% (12/15/2023, 1:06pm). Patient was subsequently transitioned to high flow O2 via nasal cannula 11 liters/minute (12/16/2023, 3:36am), and patient's O2 saturation remained at 95% (12/16/2023, 3:36am)(12/17/2023, 11:33am). Hence, patient continues to receive high flow O2 via nasal cannula 11 liters/minute. Patient was started on empiric zosyn 4.5g IV q8 x 8 doses (day #1 on 12/13/2023, 6:45pm) and was transitioned to augmentin 500mg/125mg PO bid x 4 doses (day #1 on 12/16/2023, 5:00pm) as per [employer] Dr. David Ludwig. Subsequently, patient's WBC decreased to normal, as shown below: cf., WBC 14.27, N80 L 8 M11 E1 (12/13/2023, 5:39pm). cf., WBC 12.94, N81 L 6 M11 E2 (12/14/2023, 7:27am). cf., WBC 12.46, N81 L 6 M12 E1 (12/15/2023, 5:56am). cf., WBC 10.16, N78 L 7 M11 E3 (12/16/2023, 6:10am). cf., WBC 8.59, N72 L11 M11 E5 (12/17/2023, 4:58am). Of final note, patient may benefit from Interventional Radiology Service evaluation and/or Thoracic Surgery Service evaluation regarding loculated RLL parapneumonic effusion as it is not amenable to drainage by the current R chest tube. (2) Acute kidney injury superimposed on chronic kidney disease: Plan: cf., BUN 42, creatinine 1.77, GFR 38.35 mL/min (12/13/2023, 5:39pm). cf., BUN 43, creatinine 1.91, GFR 35.00 mL/min (12/14/2023, 7:27am). cf., BUN 53, creatinine 2.47, GFR 25.71 mL/min (12/15/2023, 5:56am). cf., BUN 71, creatinine 2.88, GFR 21.38 mL/min (12/16/2023, 6:10am). cf., BUN 76, creatinine 2.59, GFR 24.29 mL/min (12/17/2023, 4:58am). cf., CKD stage III with baseline creatinine range, 1.24 - 1.37 (01/14/2022 - 10/04/2023). Etiology of acute kidney injury remains unclear, but is presumed to be due to hypovolemia / dehydration given BUN:creatinine ratio that is consistently greater than 20:1, as noted above. Additional contributions to acute kidney injury may involve patient's home-scheduled ASA 81mg PO daily and/or irbesartan 300mg PO daily. Hence, patient is being held off: 1. patient's home-scheduled ASA 81mg PO daily (given potential for this medication to cause further renal embarrassment). 2. patient's home-scheduled irbesartan 300mg PO daily (given potential for this medication to cause further renal embarrassment). Etiology of CKD is most likely due to HTN and DM. The cornerstone of therapy of CKD is to treat the underlying causes, namely, HTN and DM. (3) Diabetes mellitus, type II, insulin dependent: Plan: Long-term glycemic control is modest with HbA1c 7.3% (10/04/2023, 11:40am). cf., glucose 191 mg/dL (12/13/2023, 5:39pm). cf., glucose 169 mg/dL (12/14/2023, 7:27am). cf., glucose 299 mg/dL (12/15/2023, 5:56am). cf., glucose 256 mg/dL (12/16/2023, 6:10am). cf., glucose 191 mg/dL (12/17/2023, 4:58am). Continue carbohydrate consistent diet, lantus 15 units SQ bid, aspart insulin sliding scale qac + qhs (utilizing a correction factor of 20mg/dL per unit of aspart insulin, and a carb ratio of 7g per unit of aspart insulin), and POC glucose qac + qhs. Holding off: 1. patient's home-scheduled metformin 500mg PO bid (given potential for this medication to cause dyspepsia). 2. patient's home-scheduled empagliflozin (Jardiance) 10mg PO daily (given anticipated need for video-assisted thoracoscopic surgery to treat patient's RLL loculated parapneumonic effusion). 3. patient's home-scheduled NPH insulin 18 units SQ bid (given aspart's more rapid onset and more durable length of action compared to NPH in the hospital setting). (4) Hypertension: Plan: cf., admitting BP 122/52 (12/13/2023, 5:47pm). cf., current BP 140/70 (12/17/2023, 11:40am). Continue 2 gram Na diet, nifedipine ER 60mg PO daily, doxazosin 4mg PO qhs, and BP checks q8h while patient remains in [facility]. (5) Acute blood loss anemia: Plan: cf., Hb 13.0 g/dL, MCV 95.0, MCHC 32.9 (12/13/2023, 5:39pm). cf., Hb 11.8 g/dL, MCV 94.4, MCHC 33.1 (12/14/2023, 7:27am). cf., Hb 11.6 g/dL, MCV 94.4, MCHC 33.0 (12/15/2023, 5:56am). cf., Hb 12.0 g/dL, MCV 94.6, MCHC 32.7 (12/16/2023, 6:10am). cf., Hb 10.5 g/dL, MCV 93.0, MCHC 33.1 (12/17/2023, 4:58am). cf., historical Hb range, 14.3 - 15.3 g/dL (08/25/2021 - 08/19/2022). Patient reports no mucosal bleeding (e.g., epistaxis, hemoptysis, hematemesis, hematochezia, melena, hematuria) and remains hemodynamically stable. Etiology of acute blood loss anemia remains unclear, and may be due in part to the multiple blood draws performed during this hosiptalization (12/13/2023 - 12/17/2023). Subsequently, I will check repeat Hb level in the 12/18/2023 am, and reserve packed RBC transfusion for Hb level less than 7 g/dL. (6) Acute hyponatremia: Plan: cf., Na 136 mmol/L (12/13/2023, 5:39pm). cf., Na 137 mmol/L (12/14/2023, 7:27am). cf., Na 135 mmol/L (12/15/2023, 5:56am). cf., Na 134 mmol/L (12/16/2023, 6:10am). cf., Na 134 mmol/L (12/17/2023, 4:58am). cf., historical Na range, 139 - 145 mmol/L (05/30/2020 - 10/04/2023). Patient reports no neurologic complaints such as confusion, tremors, seizures, or weakness on 12/17/2023. Etiology of acute hyponatremia is probably due to mild, acute dehydration, and hence, patient has been encouraged to increase his oral intake of fluids/liquids. I will check repeat Na level in the 12/18/2023 am. Plan Other chronic, miscellaneous medical issues worth notin. CV. Hyperlipidemia. Asymptomatic on home-scheduled atorvastatin 20mg PO qhs. 2. Psych. Major depression. Mild. No suicidal ideation. Asymptomatic on home-scheduled venlafaxine 37.5mg PO daily. 3. Vascular. DVT prophylaxis. Hold off pharmacologic DVT prophylaxis with heparin or lovenox given the potential for either medication to transform patient's loculated RLL parapneumonic effusion into a hemorrhagic one. Continue mechanical DVT prophylaxis with SCD to the bilateral calves. Of note, patient reports no calf pain, leg swelling, or pleurisy to suggest either DVT or PE on 12/17/2023. 4. Pain Management. Patient reports 0/10 pain on 12/17/2023. Continue tylenol 650mg PO q4 prn pain 1-3, headache, temp > 100.4 degrees Fahrenheit, tramadol 50mg PO q4 prn pain 4-6, and dilaudid 1mg IV q6 prn pain 7-10. 5. Code status, DNR/DNI @ home with and family. Condition of patient remains guarded. I anticipate that this patient will remain in [facility] for the next 2+ midnights, in order to determine how best to treat patient's loculated RLL parapneumonic effusion which is not amenable to drainage with patient's current right-sided chest tube. Admission and Anticipated Discharge Date Admission Date: December 13, 2023 Subjective "Breathing still not easy. Short of breath sitting in the chair." Review of Systems Review of Systems: Positive for shortness of breath at rest and dyspnea with exertion. Positive for dry cough. Negative for antecedent or coincident fevers, chills, sweats, wheeze, sore throat, hemoptysis, chest pains, palpitations, pleurisy, nausea, vomiting, diarrhea, abdominal pain, pelvic pain, flank pain, back pain, shoulder pain, hematemesis, hematochezia, melena, hematuria, dysuria, frequency, urgency, headaches, dizziness, lightheadedness, visual changes, hearing changes, falls, sick contacts, trauma, travel history, or food/drug ingestions novel or new. All other review systems are reported as negative by the patient on 12/17/2023. Physical Exam Physical Exam: General: comfortable, coherent, cooperative. Wide awake and alert. Not confused, lethargic, or obtunded. Patient speaks in complete, fluent, and articulate sentences without pause, interruption, cough, or wheeze on 11 liters/minute O2 via nasal cannula. HEENT: NC/AT. EOMI. PERRL. No nystagmus, gaze paresis, anisocoria, miosis, chemosis, mydriasis, hyphema, scleral injection, conjunctivitis, or pterygium. No otorrhea or rhinorrhea. No pharyngeal discharge or erythema. Neck: Supple, no stridor, bruit, goiter, JVD, or HJR. Chest: Symmetric rise and fall with respirations. 340cc of dark red fluid expressed in right chest tube over the past 24 hours. Lungs: Coarse breath sounds bilaterally. No audible expiratory wheeze, egophony, pectoriloquy, increase in tactile fremitus, or flatness/dullness to percussion at the bases. Heart: RRR, S1 and S2 noted. No S3 or S4 summation gallop. Grade II/ early systolic murmur @ LLSB, without radiation to the carotids, axilla, or back, and which remains invariant in regards to the respiratory cycle. Abdomen: Soft, NT, ND, no organomegaly. Bowel sounds auscultated in all 4 quadrants. Extremities: No clubbing, cyanosis, or edema. 2+ pedal pulses bilaterally. Skin: No decubitus ulcer, exanthem, or enanthem. Neurology: Alert and oriented in regards to person, place, time, or situation. 5/5 motor strength in all 4 extremities, both proximally and distally. Urology: No urethral discharge. Results & Data Results & Data Vital Signs (Past 12 Hours) Vital Signs Temp Pulse Pulse Resp BP Pulse Ox O2 Del Method 12/17/23 19:44 36.3 C L 79 18 150/75 H 95 High Flow Nasal Cannula 12/17/23 16:07 36.3 C L 74 20 131/68 95 Nasal Cannula 12/17/23 15:32 77 12/17/23 11:33 36.5 C 93 H 20 116/69 95 Nasal Cannula O2 Flow Rate 12/17/23 19:44 12/17/23 16:07 11.0 12/17/23 15:32 12/17/23 11:33 11.0 Laboratory Results WBC 14.27, N80 L 8 M11 E1, Hb 13.0, MCV 95.0, MCHC 32.9, platelet 354 (12/13/2023, 5:39pm). WBC 12.94, N81 L 6 M11 E2, Hb 11.8, MCV 94.4, MCHC 33.1, platelet 371 (12/14/2023, 7:27am). WBC 12.46, N81 L 6 M12 E1, Hb 11.6, MCV 94.4, MCHC 33.0, platelet 379 (12/15/2023, 5:56am). WBC 10.16, N78 L 7 M11 E3, Hb 12.0, MCV 94.6, MCHC 32.7, platelet 379 (12/16/2023, 6:10am). WBC 8.59, N72 L11 M11 E5, Hb 10.5, MCV 93.0, MCHC 33.1, platelet 352 (12/17/2023, 4:58am). INR 1.0 (12/13/2023, 5:39pm). Na 136, K 4.0, BUN 42, creatinine 1.77, GFR 38.35 mL/min, glucose 191, anion gap 9, CO2 27 (12/13/2023, 5:39pm). Na 137, K 4.1, BUN 43, creatinine 1.91, GFR 35.00 mL/min, glucose 169, anion gap 10, CO2 27 (12/14/2023, 7:27am). Na 135, K 4.9, BUN 53, creatinine 2.47, GFR 25.71 mL/min, glucose 299, anion gap 9, CO2 27 (12/15/2023, 5:56am). Na 134, K 4.4, BUN 71, creatinine 2.88, GFR 21.38 mL/min, glucose 256, anion gap 11, CO2 25 (12/16/2023, 6:10am). Na 134, K 4.2, BUN 76, creatinine 2.59, GFR 24.29 mL/min, glucose 191, anion gap 8, CO2 25 (12/17/2023, 4:58am). Diagnostic Findings Portable CXR (12/13/2023, 5:36pm): RLL pleural effusion. Right > left airspace opacities, new. May represent atelectasis, PNA, or aspiration. CT chest w/o (12/14/2023, 1:06am): Moderate right pleural effusion, likely mildly loculated, is seen with underlying atelectasis. Portable CXR (12/14/2023, 9:11am): Status post right-sided thoracentesis and right-sided chest tube placement without evidence of pneumothorax. Portable CXR (12/15/2023, 8:00am): Stable exam, a right chest tube is in place. No evidence of pneumothorax. Stable small bilateral pleural effusions. Portable CXR (12/15/2023, 1:19pm): Cardiomegaly with pulmonary vascular congestion. Small pleural effusions with dependent consolidation. Chest tube at the right lung base. No pneumothorax is clearly identified. Portable CXR (12/16/2023, 8:00am): Right basilar pleural catheter unchanged in position. Tip remains within chest. Several sideholes appear to be within chest wall. No pneumothorax. No change in a small right pleural effusion with associated right basilar opacity. Portable CXR (12/17/2023, 8:00am): No change in position of R basilar pleural catheter. Subtle RLL lucency likely reflects aerated lung. Small R pleural effusion with persistent R basilar opacity; Slight increase in L basilar opacity Cardiomegaly with pulmonary vascular congestion. CT chest w/o (12/17/2023, 9:02am): Interval pleural catheter placement with r esolving loculated moderate size right pleural effusion with partial collapse of RML and RLL. Underlying infection is not excluded. Persistent focus of loculated fluid in the pleura along the basilar RLL, which is not being drained by the catheter. PG Care Time/CCT Total # of Minutes Spent Total Time Spent with Patient: Total time spent is greater than 50% in coordination of care (as documented) at patient's floor/unit and/or counseling patient: Coding Level of Care Code 13874 SUB INP/OBS CARE 3/50MIN Diagnoses Pleural effusion associated with pulmonary infection J18.9; J91.8 Acute kidney injury superimposed on chronic kidney disease N17.9; N18.9 Diabetes mellitus, type II, insulin dependent E11.9; Z79.4 Primary hypertension I10 Hypertension type: primary hypertension Acute blood loss anemia D62 Acute hyponatremia E87.1 (4) Hypertension Hypertension type: primary hypertension Qualified Code(s): I10 - Essential (primary) hypertension
--- NOTE | 2023-12-18 09:32 | Pulmonology Progress Note ---
Date of Service December 18, 2023 Assessment & Plan (1) Pleural effusion associated with pulmonary infection: (2) Hypoxemia: (3) CKD (chronic kidney disease) stage 3, GFR 30-59 ml/min: Chronic kidney disease stage 3 subtype: stage 3a (GFR 45-59) Qualified Code(s): N18.31 - Chronic kidney disease, stage 3a Plan Impression: 78-year-old male with parapneumonic loculated complicated effusion status post pigtail catheter placement status post mist [address] scan demonstrates resolution of the anterior loculated fluid collection however there is a posterior/intrafissural component with layering densities consistent with blood. Recommendations: 1. Complicated parapneumonic effusion: While we have been successful in resolving about 70% of the fluid, there is a residual component within the fissure which likely demonstrates hemorrhage. On review, I do not think this is amenable to an additional small bore chest tube and radiology feels that this is consistent with blood which would be unlikely to be evacuated with additional percutaneous small bore tubes. Discussed with the patient and at this point in time would recommend transfer to a tertiary facility for thoracic surgery evaluation and/or IR evaluation to see whether or not complete evacuation and washout of the pleural space might be appropriate. The patient is agreeable. Discussed with hospitalist to her make the call to the transfer center today. The patient requests transfer to [place] if possible 2. Patient is currently day #6 antimicrobial therapy, currently on oral Augmentin. Cultures remain no growth to date. 3. Acute kidney injury: Repeat BMP pending today 4. Hypoxemia: Continue to wean oxygen as tolerated. Continue incentive spirometry. Discussed with hospitalist. Recommend transfer to facility for thoracic surgery evaluation for potential video-assisted thoracoscopic washout. Feel free to contact us with questions or concerns Admission and Anticipated Discharge Date Admission Date: December 13, 2023 Subjective Patient seen and examined. EMR reviewed. The patient continues to have significant pain. He completed the CT of the chest without contrast yesterday with results documented below. He has not had fevers or chills. He continues to have decent output from the pigtail drain after having completed mist 2 protocol Review of Systems 2 Review of Systems: All systems reviewed & are unremarkable except as noted in Subjective Physical Exam 2 Constitutional: WD/WN, vitals as above Neck: trachea midline, no thyromegaly Respiratory: + dullness to percussion and + cough; no respiratory distress and no labored breathing Auscultation: + diminished lung sounds Cardiovascular: Rate/Rhythm: regular rate Heart Sounds: normal S1, normal S2 and + murmur Extremities: + edema Gastrointestinal (Abdomen): normal bowel sounds, soft, nontender, no hepatosplenomegaly Musculoskeletal: Extremities: extremities normal to inspection Skin: no rashes, warm and dry Lymphatic: no cervical lymphadenopathy Results & Data Results & Data Vital Signs (Past 12 Hours) Vital Signs Temp Pulse Pulse Resp BP Pulse Ox O2 Del Method 12/18/23 07:43 36.8 C 83 14 157/67 H 95 Nasal Cannula 12/18/23 07:30 High Flow Nasal Cannula 12/18/23 07:30 77 12/18/23 03:51 36.6 C 71 18 119/71 97 High Flow Nasal Cannula 12/17/23 21:49 83 O2 Flow Rate 12/18/23 07:43 9 12/18/23 07:30 10 12/18/23 07:30 12/18/23 03:51 12/17/23 21:49 Laboratory Results 12/17/23 04:58 12/17/23 04:[address] of the chest without contrast from yesterday reviewed. The pigtail catheter is in good place. The anterior fluid collection appears resolved however there is a posterior intrafissural component with layering densities. I discussed with radiology and they feel this is consistent with blood. PG Care Time/CCT Total # of Minutes Spent Total Time Spent with Patient: Total time spent is greater than 50% in coordination of care (as documented) at patient's floor/unit and/or counseling patient: Coding Level of Care Code 26677 SUB INP/OBS CARE 3/50MIN Diagnoses Pleural effusion associated with pulmonary infection J18.9; J91.8 Hypoxemia R09.02 Stage 3a chronic kidney disease N18.31 Chronic kidney disease stage 3 subtype: stage 3a (GFR 45-59)
[2023-12-18 10:43] VITALS: RESP 18; TEMP 97.7; O2SAT 98
--- NOTE | 2023-12-18 11:34 | XRay Report ---
XR chest 1V portable HISTORY: 78 years-old Male Chest tube ? MIST 2 protocol acute shortness of breath COMPARISON: Chest CT and chest radiograph 12/17/2023 TECHNIQUE: AP view the chest FINDINGS: Cardiac silhouette is enlarged. Atherosclerosis of the aorta. Unchanged positioning of the right-side d pleural catheter. Loculated moderate size right pleural effusion is unchanged. Trace left pleural e ffusion. Bibasilar consolidation. Pulmonary vascular congestion. Bones appear grossly intact. IMPRESSION: 1. Stable positioning of the right-sided pleural catheter with unchanged loculated moderate-sized rig ht pleural effusion. 2. Right greater left bibasilar consolidation again seen, better evaluated on yesterday's CT of the c hest. ACT 112: Negative or not required by law. The above report was generated using voice recognition software. It may contain grammatical, syntax o r spelling errors. Electronically signed by: Heriberto Miller M.D. 12/18/2023 11:32 AM
--- NOTE | 2023-12-18 13:01 | Discharge Summary ---
Discharge Summary Date of Service December 18, 2023 Principal Dx & Hospital Course #1 = Principal Diagnosis (1) Pleural effusion associated with pulmonary infection: Acute hypoxic respiratory failure with O2 sat 84% on room air (12/13/2023, 5:24pm). Etiology of acute hypoxic respiratory failure is most likely due to a loculated RLL parapneumonic effusion (first detected on 12/14/2023, 1:06am CT chest without contrast), and which is not being drained by current R chest tube, which was placed on 12/14/2023, 9:29am with Bottle Carrier Dr. David Ludwig, who withdrew 300 mL of que-colored fluid initially, followed by an additional 300 mL of turbid yellow-colored fluid once the R chest tube was attached to suction with drainage. On 12/15/2023 and on 12/16/2023, patient was still expressing more than 200 mL of effluent via R chest tube. On 12/17/2023, patient expressed 340 mL of effluent via R chest tube. Goal for removal of R chest tube: < 200 mL of effluent per 24 hours. Of further note, patient received alteplase 10mg in 60mL syringe IV q12 x 2 doses (12/14/2023, 10:00am) and dornase ashu 10mg in 30 mL syringe IV q12 x 2 doses (12/14/2023, 11:00am). Acute hypoxic respiratory failure in [facility] was first treated with 4 liters / minute O2 via Oxymask; subsequently, patient's O2 saturation increased from 84% on room air (12/13/2023, 5:24pm) to 91% on 4 liters/minute O2 via Oxymask (12/13/2023, 5:47pm). Patient was subsequently transitioned to high flow O2 via nasal cannula 10 liters/minute (12/14/2023, 3:11am), and patient's O2 saturation increased to 97% (12/14/2023, 3:11am). Patient was subsequently transitioned to high flow O2 via nasal cannula 12 liters/minute (12/15/2023, 1:06pm), and patient's O2 saturation decreased to 95% (12/15/2023, 1:06pm). Patient was subsequently transitioned to high flow O2 via nasal cannula 11 liters/minute (12/16/2023, 3:36am), and patient's O2 saturation remained at 95% (12/16/2023, 3:36am)(12/17/2023, 11:33am). Hence, patient continues to receive high flow O2 via nasal cannula 11 liters/minute. Patient was started on empiric zosyn 4.5g IV q8 x 8 doses (day #1 on 12/13/2023, 6:45pm) and was transitioned to augmentin 500mg/125mg PO bid x 4 doses (day #1 on 12/16/2023, 5:00pm) as per Bottle Carrier Dr. David Ludwig. Subsequently, patient's WBC decreased to normal, as shown below: cf., WBC 14.27, N80 L 8 M11 E1 (12/13/2023, 5:39pm). cf., WBC 12.94, N81 L 6 M11 E2 (12/14/2023, 7:27am). cf., WBC 12.46, N81 L 6 M12 E1 (12/15/2023, 5:56am). cf., WBC 10.16, N78 L 7 M11 E3 (12/16/2023, 6:10am). cf., WBC 8.59, N72 L11 M11 E5 (12/17/2023, 4:58am). cf., WBC 8.30, N72 L10 M11 E6 (12/18/2023, 1:04pm). Of final note, patient may benefit from Interventional Pulmonology Service and/or Thoracic Surgery Service regarding possible decortication of loculated RLL parapneumonic effusion as it is not amenable to drainage by the current R chest tube. Hence, I spoke with [facility] Bottle Carrier Dr. David Ludwig, and he recommended that patient be transferred to [facility] to undergo Interventional Pulmonology Service and/or Thoracic Surgery Service evaluations. Subsequently, I spoke with [facility] Thoracic Surgeon Dr. Momo Julien, and he concurred that patient be transferred to [facility] for the higher level of care (e.g., Interventional Pulmonology Service, Thoracic Surgery Service) not available at [facility]. Subsequently, [facility] Hospitalist Dr. Connor Middleton graciously accepted patient onto his hospitalist service and [facility] Thoracic Surgeon Dr. Julien stating that he will see the patient immediately on arrival to [facility]. Patient was subsequently transferred from [facility] to [facility] via [facility] [employer] helicopter on 12/18/2023, in part because of heavy traffic/congestion at [facility] on 12/18/2023, with over 110,000 fans in attendance for the annual [employer] Stri[employer] Game @ [employer] (right next to [facility]) with the [facility] [employer] and [facility] [employer]. (2) Acute kidney injury superimposed on chronic kidney disease: cf., BUN 42, creatinine 1.77, GFR 38.35 mL/min (12/13/2023, 5:39pm). cf., BUN 43, creatinine 1.91, GFR 35.00 mL/min (12/14/2023, 7:27am). cf., BUN 53, creatinine 2.47, GFR 25.71 mL/min (12/15/2023, 5:56am). cf., BUN 71, creatinine 2.88, GFR 21.38 mL/min (12/16/2023, 6:10am). cf., BUN 76, creatinine 2.59, GFR 24.29 mL/min (12/17/2023, 4:58am). cf., BUN 67, creatinine 1.70, GFR 40.25 mL/min (12/18/2023, 1:04pm). cf., CKD stage III with baseline creatinine range, 1.24 - 1.37 (01/14/2022 - 10/04/2023). Etiology of acute kidney injury remains unclear, but is presumed to be due to hypovolemia / dehydration given BUN:creatinine ratio that is consistently greater than 20:1, as noted above. Additional contributions to acute kidney injury may involve patient's home-scheduled ASA 81mg PO daily and/or irbesartan 300mg PO daily. Hence, patient was held off: 1. patient's home-scheduled ASA 81mg PO daily (given potential for this medication to cause further renal embarrassment). 2. patient's home-scheduled irbesartan 300mg PO daily (given potential for this medication to cause further renal embarrassment). Etiology of CKD is most likely due to HTN and DM. The cornerstone of therapy of CKD is to treat the underlying causes, namely, HTN and DM. (3) Acute blood loss anemia: cf., Hb 13.0 g/dL, MCV 95.0, MCHC 32.9 (12/13/2023, 5:39pm). cf., Hb 11.8 g/dL, MCV 94.4, MCHC 33.1 (12/14/2023, 7:27am). cf., Hb 11.6 g/dL, MCV 94.4, MCHC 33.0 (12/15/2023, 5:56am). cf., Hb 12.0 g/dL, MCV 94.6, MCHC 32.7 (12/16/2023, 6:10am). cf., Hb 10.5 g/dL, MCV 93.0, MCHC 33.1 (12/17/2023, 4:58am). cf., Hb 10.8 g/dL, MCV 94.2, MCHC 33.2 (12/18/2023, 1:04pm). cf., historical Hb range, 14.3 - 15.3 g/dL (08/25/2021 - 08/19/2022). Patient reports no mucosal bleeding (e.g., epistaxis, hemoptysis, hematemesis, hematochezia, melena, hematuria) and remains hemodynamically stable. Etiology of acute blood loss anemia remains unclear, and may be due in part to the multiple blood draws performed during this hospitalization (12/13/2023 - 12/18/2023). Of note, patient did not require or receive any packed RBC transfusion(s) while in [facility]. (4) Acute hyponatremia: cf., Na 136 mmol/L (12/13/2023, 5:39pm). cf., Na 137 mmol/L (12/14/2023, 7:27am). cf., Na 135 mmol/L (12/15/2023, 5:56am). cf., Na 134 mmol/L (12/16/2023, 6:10am). cf., Na 134 mmol/L (12/17/2023, 4:58am). cf., Na 137 mmol/L (12/18/2023, 1:04pm). cf., historical Na range, 139 - 145 mmol/L (05/30/2020 - 10/04/2023). Patient reports no neurologic complaints such as confusion, tremors, seizures, or weakness on 12/17/2023. Etiology of acute hyponatremia was probably due to mild, acute dehydration, and hence, patient has been encouraged to increase his oral intake of fluids/liquids. (5) Diabetes mellitus, type II, insulin dependent: Long-term glycemic control is modest with HbA1c 7.3% (10/04/2023, 11:40am). cf., glucose 191 mg/dL (12/13/2023, 5:39pm). cf., glucose 169 mg/dL (12/14/2023, 7:27am). cf., glucose 299 mg/dL (12/15/2023, 5:56am). cf., glucose 256 mg/dL (12/16/2023, 6:10am). cf., glucose 191 mg/dL (12/17/2023, 4:58am). cf., glucose 209 mg/dL (12/18/2023, 1:04pm). Patient received carbohydrate consistent diet, lantus 15 units SQ bid, aspart insulin sliding scale qac + qhs (utilizing a correction factor of 20mg/dL per unit of aspart insulin, and a carb ratio of 7g per unit of aspart insulin), and POC glucose qac + qhs while in [facility]. Patient was held off: 1. patient's home-scheduled metformin 500mg PO bid (given potential for this medication to cause dyspepsia). 2. patient's home-scheduled empagliflozin (Jardiance) 10mg PO daily (given anticipated need for video-assisted thoracoscopic surgery to treat patient's RLL loculated parapneumonic effusion). 3. patient's home-scheduled NPH insulin 18 units SQ bid (given aspart's more rapid onset and more durable length of action compared to NPH in the hospital setting). (6) Hypertension: cf., admitting BP 122/52 (12/13/2023, 5:47pm). cf., current BP 148/72 (12/18/2023, 10:42am). Patient received a 2 gram Na diet, nifedipine ER 60mg PO daily, doxazosin 4mg PO qhs, and BP checks q8h while patient remained in [facility]. Plan Other chronic, miscellaneous medical issues worth notin. CV. Hyperlipidemia. Asymptomatic on home-scheduled atorvastatin 20mg PO qhs. 2. Psych. Major depression. Mild. No suicidal ideation. Asymptomatic on home-scheduled venlafaxine 37.5mg PO daily. 3. Vascular. DVT prophylaxis. Hold off pharmacologic DVT prophylaxis with heparin or lovenox given the potential for either medication to transform patient's loculated RLL parapneumonic effusion into a hemorrhagic one. Continue mechanical DVT prophylaxis with SCD to the bilateral calves. Of note, patient reports no calf pain, leg swelling, or pleurisy to suggest either DVT or PE on 12/17/2023. 4. Pain Management. Patient reports 0/10 pain on 12/18/2023. Continue tylenol 650mg PO q4 prn pain 1-3, headache, temp > 100.4 degrees Fahrenheit, tramadol 50mg PO q4 prn pain 4-6, and dilaudid 1mg IV q6 prn pain 7-10. 5. Code status, DNR/DNI @ home with and family. Condition of patient remains guarded. There were no adverse events noted with this hospitalization. Of final note, patient may benefit from Interventional Pulmonology Service and/or Thoracic Surgery Service regarding possible decortication of loculated RLL parapneumonic effusion as it is not amenable to drainage by the current R chest tube. Hence, I spoke with [facility] Bottle Carrier Dr. David Ludwig, and he recommended that patient be transferred to [facility] to undergo Interventional Pulmonology Service and/or Thoracic Surgery Service evaluations. Subsequently, I spoke with [facility] Thoracic Surgeon Dr. Momo Julien, and he concurred that patient be transferred to [facility] for the higher level of care (e.g., Interventional Pulmonology Service, Thoracic Surgery Service) not available at [facility]. Subsequently, [facility] Hospitalist Dr. Connor Middleton graciously accepted patient onto his hospitalist service and [facility] Thoracic Surgeon Dr. Julien stating that he will see the patient immediately on arrival to [facility]. Patient was subsequently transferred from [facility] to [facility] via [facility] [employer] helicopter on 12/18/2023, in part because of heavy traffic/congestion at [facility] on 12/18/2023, with over 110,000 fans in attendance for the annual [employer] Game @ [employer] (right next to [facility]) with the [facility] [employer] and [facility] [employer]. Admission HPI Per Admitting Provider 78 years old zamorano with PMH of DNR/DNI @ home with , obesity with BMI 35.7 (height 177.8 cm; weight 112.9 kg), hyperlipidemia, HTN, CKD stage III with baseline creatinine range, 1.24 - 1.37 (01/14/2022 - 10/04/2023), and insulin-dependent DM2 with HbA1c 7.3% (10/04/2023, 11:40am), who presented ED with shortness of breath and right sided chest pain for the last week. Pt was seen in ED in [place] and told he had pneumonia. He was given a Z-richard, prednisone taper and Percocet. Pt states he has been taking meds as directed, but breathing has become more difficult and unable to sleep. Pt states he has right sided chest pain that is worse with coughing, deep breathing and when leaning or laying on his right side. Pain is better when taking shallow breaths and sitting upright, leaning over a table. Pt denies fever or chills. He denies nausea, vomiting, diarrhea, dysuria, or hematuria. Pt endorses recent onset swelling in lower legs and feet. Pt does not use a diuretic. In ED patient was started on 4L oxymask and IV Zosyn. Was given Toradol 15mg IV and lidoderm 5% patch for pain. Discharge Exam General: comfortable, coherent, cooperative. Wide awake and alert. Not confused, lethargic, or obtunded. Patient speaks in complete, fluent, and articulate sentences without pause, interruption, cough, or wheeze on 11 liters/minute O2 via nasal cannula. HEENT: NC/AT. EOMI. PERRL. No nystagmus, gaze paresis, anisocoria, miosis, chemosis, mydriasis, hyphema, scleral injection, conjunctivitis, or pterygium. No otorrhea or rhinorrhea. No pharyngeal discharge or erythema. Neck: Supple, no stridor, bruit, goiter, JVD, or HJR. Chest: Symmetric rise and fall with respirations. 0 cc of dark red fluid expressed in right chest tube over the past 24 hours. Lungs: Coarse breath sounds bilaterally. No audible expiratory wheeze, egophony, pectoriloquy, increase in tactile fremitus, or flatness/dullness to percussion at the bases. Heart: RRR, S1 and S2 noted. No S3 or S4 summation gallop. Grade II/ early systolic murmur @ LLSB, without radiation to the carotids, axilla, or back, and which remains invariant in regards to the respiratory cycle. Abdomen: Soft, NT, ND, no organomegaly. Bowel sounds auscultated in all 4 quadrants. Extremities: No clubbing, cyanosis, or edema. 2+ pedal pulses bilaterally. Skin: No decubitus ulcer, exanthem, or enanthem. Neurology: Alert and oriented in regards to person, place, time, or situation. 5/5 motor strength in all 4 extremities, both proximally and distally. Urology: No urethral discharge. Discharge Plan Discharge Items Patient Disposition: Home - Self-Care Reason For Visit: RIGHT PLEURAL EFFUSION Discharge Diagnosis: Loculated RLL parapneumonic effusion Activity: Resume your previous activity Non-emergency contact: Primary Care Provider Call non-emergency contact if: you have any medication questions Follow-up/Referrals: Carly Quintanilla MD [Primary Care Provider] - Diet: Regular, Carb Consistent or DM2 and Heart Healthy Addtl Attending Provider Instructions: See your PCP Dr. Carly Quintanilla within 3-[address] [facility]. Pending Studies at Discharge: No Stand-Alone Forms: My [employer], Smoking Cessation Medications and DC Order Prescriptions: New amoxicillin-pot clavulanate 500-125 mg Tablet 1 tab PO BIDM Qty: 14 0RF tramadol 50 mg Tablet 50 mg PO Q4H PRN (Reason: pain, moderate) Qty: 30 0RF Continued doxazosin 4 mg tablet 4 mg PO DAILY Qty: 90 3RF atorvastatin 20 mg tablet 20 mg PO DAILY Qty: 90 3RF venlafaxine 37.5 mg tablet extended release 24hr 37.5 mg PO DAILY Qty: 90 1RF nifedipine 60 mg tablet extended release 60 mg PO DAILY Qty: 90 0RF loratadine 10 mg tablet,disintegrating 10 mg PO DAILY Qty: 30 0RF Held Jardiance 10 mg tablet 10 mg PO DAILY Qty: 30 8RF Hold Instructions: Resume on 01/22/24. Rx Instructions: Take one tablet once a day by mouth. metformin 500 mg tablet 500 mg PO BID Qty: 60 5RF Hold Instructions: Resume on 01/22/24. Rx Instructions: Take 500 mg by mouth twice daily. Humulin N NPH Insulin KwikPen 100 unit/mL (3 mL) insulin pen 18 unit subcut BID Hold Instructions: Resume on 01/22/24. prednisone 10 mg tablet See Rx Instructions PO DAILY Qty: 30 0RF Hold Instructions: Resume on 01/22/24. Rx Instructions: 4 tabs for 3 days, then 3 tabs for 3 days, then 2 tabs for 3 days, then 1 tab for 3 days. PO DAILY; oxycodone-acetaminophen 5-325 mg tablet 1 tab PO Q6H PRN (Reason: Pain, Mild) Hold Instructions: Resume on 01/22/24. Discontinued (DME) FreeStyle Timothy 14 Day [place] Misc See Rx Instructions .Route Qty: 1 0RF Rx Instructions: As directed (DME) FreeStyle Timothy 14 Day Sensor Kit See Rx Instructions .Route Qty: 1 0RF Rx Instructions: As directed irbesartan 300 mg tablet 300 mg PO DAILY Qty: 90 1RF (DME) Embrace TALK test strips Strip See Rx Instructions .Route Qty: 200 3RF Rx Instructions: test 2 times daily aspirin 81 mg tablet 81 mg PO DAILY omega-3 acid ethyl esters 1 gram capsule 2 cap PO DAILY zinc acetate 50 mg (zinc) capsule 50 mg PO DAILY multivitamin Tablet 1 tab PO DAILY benzonatate 200 mg capsule 200 mg PO TID PRN (Reason: cough) Qty: 30 0RF Admission Data Admit Date/Time: 12/13/23 19:42 Attending Provider: Ambrocio Dugan Admit Provider: Argenis Turner Primary Care Provider: Carly Quintanilla Other Providers: Argenis Turner; David Ludwig Hospital Stay Data Consultations 12/13/23 18:45 ED Decision to Admit Stat 12/13/23 19:41 Consult Pulmonology Routine Diagnostic Imagining Performed 12/14/23 01:06 CT chest diagnostic wo con Routine 12/17/23 09:02 CT chest diagnostic wo con Routine Pending Results Patient Have Any Pending Studies at Discharge: No Discharge Instructions Given to Patient (Per Discharging Provider) See your PCP Dr. Carly Quintanilla within 3-[address] [facility]. Total Time Total Time Spent Total Time Spent (In Minutes): 35 minutes. Coding Level of Care Code 67760 INP/OBS DISCH >30 MIN Diagnoses Pleural effusion associated with pulmonary infection J18.9; J91.8 Acute kidney injury superimposed on chronic kidney disease N17.9; N18.9 Acute blood loss anemia D62 Acute hyponatremia E87.1 Diabetes mellitus, type II, insulin dependent E11.9; Z79.4 Primary hypertension I10 Hypertension type: primary hypertension
[2023-12-18 13:20] LABS: Basophils # (auto) 0.04 K/uL (0.00-0.20); Basophils % (auto) 0.5 %; Eosinophils # (auto) 0.46 K/uL (0.00-0.50); Eosinophils % (auto) 5.5 %; Hematocrit (blood only) 32.5 % (42.0-52.0); Hemoglobin 10.8 g/dl (14.0-18.0); Immature Granulocytes # (auto) 0.03 K/uL (0.01-0.20); Immature Granulocytes % (auto) 0.4 %; Lymphocytes # (auto) 0.83 K/uL (1.20-3.40); Mean Corpuscular Hemoglobin 31.3 pg (25.0-34.0); Mean Corpuscular Hgb Conc 33.2 g/dL (32.0-36.0); Mean Corpuscular Volume 94.2 fL (80.0-100.0); Monocytes # (auto) 0.93 K/uL (0.11-0.59); Monocytes % (auto) 11.2 %; Neutrophils # (auto) 6.01 K/uL (1.40-6.50); Neutrophils % (auto) 72.4 %; Platelet Count 348 K/uL (130-400); RDW Coefficient of Variation 13.9 % (11.5-14.5); RDW Standard Deviation 47.5 fL (36.4-46.3); Red Blood Count 3.45 M/uL (4.70-6.10)
[2023-12-18 13:37] LABS: BUN Creatinine Ratio 39.4 (10-20); Calcium 9.1 mg/dl (8.6-10.3); Creatinine Clr Calc Pharmacy 43.6 ml/min; Potassium 4.6 mmol/L (3.5-5.1)
[2023-12-18 15:07] VITALS: BP 144/72; PULSE 80
== END 2023-12-18 15:45 | disposition home or self-care (01) | DRG 193 ==
LOC: ED 17:19 → SUATTDRO 19:42 → 4W 19:42